=== PATIENT | female | born 1945 | race Caucasian/White ===

== ENCOUNTER 2023-05-08 16:57 | Inpatient (IN) | payer OTHER, SELFPAY ==
[2023-05-08] VITALS (29 sets, daily range): BP systolic 80–152; BP diastolic 44–119
[2023-05-08] MEDS: NSS 1000 IV ×5 (14:26→22:36)
[2023-05-08 14:27] LABS: Glucose - Point of Care 194 mg/dl (70-99)
--- NOTE | 2023-05-08 14:42 | ED.GENMED ---
History of Present Illness
General
Chief Complaint: Chest Pain
Source: patient and ambulance crew
Time Seen by Provider: 05/08/23 14:39
Travel History
Have you had any contact with someone who has COVID-19?: No
Do you have any symptoms of coronavirus? Fever > 100 degrees, chills, cough, shortness of breath, sore throat, loss of taste or smell, muscle aches, or headache?: No
History of Present Illness
History of Present Illness:
77-year-old female presents to the emergency room for evaluation of nausea, vomiting and shortness of breath. Patient began feeling unwell this morning. She was feeling at her baseline yesterday. Paramedics arrived and found the patient
hypotensive and short of breath. IV access was obtained and fluid was started. She received about 100 cc of normal saline en route. Patient also noted to have a rapid heart rate in the 140s and the lowest obtained blood pressure was a systolic of
65. Patient denies having any chest pain. Unclear why the chief complaint is entered as chest pain as the patient clearly denies this. She also denies any abdominal pain. Her nausea has decreased at this point. She has not had any diarrhea.
She denies any sick contacts.
Phy Exam
Physical Exam
Physical Exam:
General: Awake, Alert, Oriented X3. Appears uncomfortable
Vitals: Tachycardic, mildly hypotensive, hypoxic at 85% though we have been having difficulty to obtain a good pleth on the pulse oximeter
Head: Atraumatic
Eyes: Pupils equal, EOMI
Throat: Airway intact, no exudates, markedly dry
Neck: Trachea midline
Lungs: Clear and equal b/l
Heart: Tachycardic, irregular rate, no murmurs
Abd: Soft, Nontender, No pulsatile mass
Neuro: Nonfocal
Skin: Warm, dry, no rash
Extremities: pulses equal b/l, no edema
Scores
Heart Score for Chest Pain Patients
STEMI patient?: Not applicable (Patient does not have chest pain)
Course
Orders/Labs/Results
Orders:
Orders
05/08/23
Electrocardiogram (*1) Stat
Comment: ALREADY DONE
05/08/23 14:16
Electrocardiogram (*1) Urgent
Reason for Study: Chest Pain
Cardiac Monitoring- Treatment ONCE
EKG- Treatment ONCE
IV Insert/Care/Rem.- Treatment PRN
O2 Therapy [RESP] Urgent
Titrate/Wean O2 to maintain O2 sat greater than (%): 90
Special Instructions: Maintain sats >/=90%
Pulse Ox/spot Check [RESP] Urgent
Quantity: 1
Special Instructions: ON ROOM AIR
05/08/23 14:23
Diltiazem HCl [Cardizem] 25 mg .ROUTE .STK-MED ONE
05/08/23 14:25
0.9% Sodium Chloride 1000 ml [Nss] 1,000 ml IV BOLUS
05/08/23 14:40
Complete Blood Count/With Diff Urgent
Comprehensive Metabolic Panel Urgent
NT-proBNP Urgent
Comment: ADD
PTT Urgent
Comment: ADD ON
Prothrombin Time Urgent
Troponin I Urgent
05/08/23 14:41
Add On- LAB Urgent
Tests Added?: bnp
CR Chest Portable - 1 View Urgent
Comment:
Reason For Exam: hypoxia
Reason Study Needs to be Portable: Patient Unstable
05/08/23 Dinner
Regular
At Your Request: Full Participation
05/08/23 15:08
COVID-19 Antigen Urgent
Source: Nasal Swab
Influenza A+B Rapid Molecular Urgent
ANURADHA Source: Nasal Swab
Specimen Description:
05/08/23 15:27
0.9% Sodium Chloride 1000 ml [Nss] 1,000 ml IV BOLUS
05/08/23 15:48
Piperacillin/Tazo 4.5 Gram [Zosyn] 4.5 gram in 100 ml IV NOW
05/08/23 15:49
Electrocardiogram (*1) Urgent
Reason for Study: Abnormal EKG
05/08/23 16:05
Ondansetron Injectable [Zofran] 4 mg IV NOW STA
05/08/23 16:17
0.9% Sodium Chloride 1000 ml [Nss] 1,000 ml IV NOW
05/08/23 16:34
Admit/Transfer Patient As Directed
Co-Sign Provider:
Level of Care: Inpatient admission
Assign to:: ICU
Physician / Group: charles
Diagnosis: sepsis pneumonia
Reason for Hospitalization: sepsis pneumonia
Expected length of stay greater than two midnights?: Yes
ELOS- Estimated Length of Stay in days: 2
I certify the patient meets the requirements for IP care: Yes
05/08/23 16:37
Code Status As Directed
Resuscitation Status: Full Code
05/08/23 16:45
Heparin 13435 Units/250 ml 25,000 units in 250 ml IV PER PROTOCOL
Weight to be used for heparin protocol in kilograms (kg):: 83.5
Protocol:: Cardiac Tx/Acute Coronary
PTT Goal Range to be used:: PTT 73 to 111 seconds
Order type:: Initial
INITIAL Infusion Dose (UNITS/KG/hr) & then follow protocol:: 12 units/kg/hr
Infusion Dose in UNITS/hr & then follow protocol (UNITS/hr):: 1,000
INFUSION RATE in mL/hr & then follow protocol (mL/hr):: 10
PTT less than or equal to 64 seconds:: Increase rate by 200 units/hr (+ 2 mL/hr)
PTT 64.1 to 72.9 seconds:: Increase rate by 100 units/hr (+ 1 mL/hr)
PTT 73 to 111 seconds:: Target Range. No change in rate.
PTT 111.1 to 130.9 seconds:: Decrease rate by 100 units/hr (- 1 mL/hr)
PTT 131 to 199.9 seconds:: HOLD for 1 hr. Then decrease rate by 200 units/hr (- 2 mL/hr)
PTT greater than or equal to 200 seconds:: HOLD for 2 hrs & Notify Provider. Then decrease by 200 units/hr (-
2 mL/hr)
Lab follow-up:: Each change, PTT q6h until 2 consecutive are therapeutic. Then PTT
daily.
05/08/23 16:46
Blood Culture Q30M
ANURADHA Source: Blood/Venous
Specimen Description:
05/08/23 16:47
Abdomen/Pelvis w Contrast CT [CT Abd/pelvis W Iv Cont] Urgent
Comment:
Reason For Exam: abdominal pain, vomiting
Blood Culture Q30M
ANURADHA Source: Blood/Venous
Specimen Description:
05/08/23 16:53
Ondansetron Injectable [Zofran] 4 mg IV Q6HPRN PRN
05/08/23 17:00
Azithromycin 500 mg/250 ml [Zithromax Infusion] 500 mg in 250 ml IV Q24H
05/08/23 18:00
VANCOMYCIN Pharmacy to Dose [VANCOCIN Pharmacy to Dose] 1 each Pharmacy To Prepare [Call Pharmacy To Prepare] 0 ml IV PER PROTOCOL
05/08/23 20:12
Urine Osmolality Random [Osmolality, Random Urine] Urgent
Date Specimen was Collected: 05/08/23
Time Specimen was Collected: 20:09
Urine Sodium Urgent
Date Specimen was Collected: 05/08/23
Time Specimen was Collected: 20:09
Legionella Urinary Antigen Urgent
ANURADHA Source: Urine
Specimen Description:
Strep pneumoniae Antigen Urgent
ANURADHA Source: Urine
Specimen Description:
05/08/23 21:51
Troponin I Q6H
0.9% Sodium Chloride 1000 ml [Nss] 1,000 ml IV 100 mls/hr
Acetaminophen [Tylenol] 650 mg PO Q4HPRN PRN
Albuterol [ProAIR HFA INHALER] 2 puff INH R Q6 PRN
Heparin 5,000 units SC Q12
05/08/23 21:51
CARDIOLOGY CONSULT Routine
Consulting Provider: Sue Matthews
Was physician already notified: Yes
Activity As Directed
Activity Level: As Tolerated
Vital Signs As Directed
Frequency: Per unit guidelines
DX Deep Vein Thrombosis Video Routine
05/08/23 22:00
Cetirizine HCl [Zyrtec] 10 mg PO HS
Piperacillin/Tazo 3.375 Gram [Zosyn] 3.375 gram in 50 ml IV Q6H
05/09/23 01:55
Complete Blood Count/With Diff IN AM
Comprehensive Metabolic Panel IN AM
05/09/23 03:51
Troponin I Q6H
05/09/23 08:00
Multivitamin [Theragran] 1 tablet PO DAILY
Pantoprazole [Protonix] 40 mg PO DAILY
05/09/23 15:51
Troponin I Q6H
Abnormal Lab Results
05/08/23 05/08/23
14:25 14:40
WBC 16.1 H 10^3/uL
(4.8-10.8)
MCH 31.8 H pg
(27.0-31.0)
Abs Immat Gran (auto) 0.2 H 10^3/uL
(0-0.05)
Absolute Neuts (auto) 12.4 H 10^3/uL
(1.4-6.5)
Absolute Monos (auto) 1.2 H 10^3/uL
(0.1-0.6)
Immature Gran % 1.0 H %
(0-0.5)
Neutrophils % 77.0 H %
(42.2-75.2)
Lymphocytes % 14.1 L %
(20.5-51.1)
Sodium 123 L mmol/L
(135-145)
Chloride 87 L mmol/L
(98-107)
BUN 21 H mg/dl
(7-17)
Glucose 219 H mg/dl
(70-99)
AST 104 H U/L
(14-36)
ALT 58 H U/L
(0-35)
Alkaline Phosphatase 131 H U/L
(38-126)
Troponin I 0.984 H* ng/ml
POC Glucose 194 H mg/dl
(70-99)
05/08/23 16:45
05/08/23 14:40
Vital Signs
Initial and Last Documented VS:
Initial Vital Signs
Pulse Resp BP
136 37 92/82
05/08/23 14:20 05/08/23 14:20 05/08/23 14:20
Last Documented Vital Signs
Temp Pulse Resp BP Pulse Ox
99.6 F 120 34 108/86 96
05/09/23 11:00 05/09/23 11:55 05/09/23 11:55 05/09/23 11:55 05/09/23 12:35
MDM/Problems Addressed
Differential Diagnosis Includes:
dehydration, new onset a fib, gastritis, pancreatitis
MDM/Problems Addressed:
Pt arrived with nausea, vomiting, and shortness of breath. She was tahcycardic and appeared very dry on exam. Fluid resuscitation initiated with 2L normal saline. Paramedics had called ahead with concern for STEMI changes on ekg. before patient
arrived reviewed prehospital EKG and blood the patient up in [facility]. There is no previous EKG but there is an echo report which clearly states the patient has a left bundle branch block at baseline. EKG in the prehospital setting and initial EKG
obtained here in the emergency room showed an irregular rapid rate with a left bundle branch block pattern. There is ST elevation in the anterior leads but it does not exceed 25% of the preceding S wave. There was no concordance. Therefore the
patient does not have changes consistent with a ST elevation [place]. Troponin returned elevated and I did review the EKG with cardiology who agreed that these changes do not reflect an acute ST elevation [place]. Patient was hypothermic on arrival. Given
this broad-spectrum antibiotics were provided for potential sepsis particularly possibility of aspiration pneumonia. Patient's MAP did remain above 65 though her systolic pressures were in the 90s. Therefore further fluid resuscitation was pursued
rather than pressors. Patient was discussed with the hospitalist for admission.
Chronic conditions affecting care: HTN and Other (Cardiomyopathy)
*Radiology
Radiology exam reviewed: radiology read reviewed
*Pulse Oximetry
Patient hypoxic: yes
*EKG
Interpretation: abnormal
Heart Rate: 139
Rate: tachycardiac
Rhythm: a-fib
QRS Pattern: left bundle branch block
Ischemia: non-specific ST changes
*Machine Assistant Interpretation
Rate: tachycardiac
Interpretation: abnormal
Rhythm: a-fib
*Critical Care Note
Total Time (30-74mins, 75-104mins- exclusive of procedures): 40 min
comment:
Critical care statement: A total of 40 minutes of critical care time was provided for this patient. This includes management of unstable vital signs, evaluation of the patient at bedside, reviewing the patient's pertinent medical records, discussion
with consultants, review of old EKGs and review of pertinent medical records. This time with separate from time utilized to perform the aforementioned documented procedures
Patient Management
Discussion with other providers: Hospitalist
ED Attending Note
-
Portions of this chart may have been created with voice recognition software.� Occasional wrong word or��sound alike� substitutions may have occurred due to the inherent limitations of voice recognition software.
Discharge Plan
Departure
Patient Disposition: Admit
Date of Disposition: 05/08/23
Time of Disposition: 16:04
Admit to: IMU
Presentation/result/management discussed w/ accepting MD/DO: Hospitalist
Condition: Serious
Discharge Problem:
Hypothermia, Acute hyponatremia, Dehydration, Hypoxia, Pneumonia
Interventions
Interventions:
*Risk Screen - Suicide Last Done: 05/08/23 14:35
*General Assessment Last Done: 05/08/23 14:35
*Neglect/Abuse Screening Last Done: 05/08/23 14:35
ED- Fall Risk Assessment Last Done: 05/08/23 14:35
*ED COVID-19 Vaccine History Last Done: 05/08/23 14:35
*Nursing Disposition Last Done: 05/08/23 22:11
ED- Cardiac Assessment Last Done: 05/08/23 14:29
Discharge Date and Time
Discharge Date/Time: 05/08/23 22:12
[2023-05-08 14:58] LABS: % Basophils 0.2 % (0-2); % Eosinophils 0.4 % (0-6); % Lymphocytes 14.1 % (20.5-51.1); % Monocytes 7.3 % (1.7-9.3); Absolute Eosinophils 0.1 10^3/uL (0-0.7); Absolute Immature Granulocytes 0.2 10^3/uL (0-0.05); Absolute Lymphocytes 2.3 10^3/uL (1.2-3.4); Absolute Monocytes 1.2 10^3/uL (0.1-0.6); Absolute Neutrophils 12.4 10^3/uL (1.4-6.5); Hematocrit 38.6 % (37.0-47.0); Hemoglobin 13.5 g/dL (12.0-16.0); Mean Corpuscular Hgb 31.8 pg (27.0-31.0); Mean Platelet Volume 9.4 fL (7.4-10.4); Nucleated Red Blood Cells % 0 %; Platelet Count 285 10^3/uL (130-400); Red Blood Cell Count 4.24 10^6/uL (4.20-5.40); Red Cell Dist. Width 12.8 % (11.5-14.5); White Blood Cell Count 16.1 10^3/uL (4.8-10.8)
[2023-05-08 15:07] LABS: ALT (SGPT) 58 U/L (0-35); AST (SGOT) 104 U/L (14-36); Albumin 4.7 g/dl (3.5-5.0); Alkaline Phosphatase 131 U/L (38-126); Blood Urea Nitrogen 21 mg/dl (7-17); Calcium 9.6 mg/dl (8.4-10.2); Carbon Dioxide 22 mmol/L (22-30); Chloride 87 mmol/L (98-107); Glucose 219 mg/dl (70-99); Potassium 4.4 mmol/L (3.5-5.1); Sodium 123 mmol/L (135-145); Total Bilirubin 1.1 mg/dl (0.2-1.3); Total Protein 7.2 g/dl (6.3-8.2); eGFR > 60.00
[2023-05-08 15:19] LABS: Troponin I 0.984 ng/ml
[2023-05-08 15:23] LABS: PT 14.2 Sec (11.4-14.6)
[2023-05-08 15:56] LABS: NT-proBNP 138 pg/ml
[2023-05-08 15:57] LABS: COVID-19 Antigen Negative (Negative)
[2023-05-08] MEDS: ZOFRAN 4 MG IV ×2 (16:21→17:48)
[2023-05-08] MEDS: ZOSYN 100 IV (16:35)
--- NOTE | 2023-05-08 16:45 | HPS.HSE ---
Addendum entered and electronically signed by Luca Hanna MD 05/08/23 21:30:
CT Abdomen shows evidence of infectious colitis. Patient with respiratory distress on 6L oxygen so placed on Nonrebreather with improvement in respiratory status.
Addendum entered and electronically signed by Luca Hanna MD 05/08/23 18:21:
Stopped heparin drip as per cardiology.
Addendum entered and electronically signed by Luca Hanna MD 05/08/23 16:56:
Heart rate has improved with IV fluids. Does not require rate control at this time.
Addendum entered and electronically signed by Luca Hanna MD 05/08/23 16:55:
HPI
77-year-old female past with past medical history of left bundle branch block, bronchiectasis, hypertension, GERD, presenting with nausea, vomiting and shortness of breath. She began feeling unwell since yesterday. She had nausea and a few
episodes of vomiting today and shortness of breath. Paramedics arrived and found patient to be hypotensive and short of breath. She was also found to have heart rate of 140s and the lowest systolic blood pressure 65. She denies any cough, chest
pain. Denies any diarrhea. Denies any sick contacts. Denies recent travel.
She began to have worsening abdominal pain and feeling like she has to have a bowel movement after she came to the emergency room. Denies any urinary symptoms.
Original Note:
Family Physician
-
Family Physician: INTERVIEWE UNKNOWN - PT NOT
Chief Complaint
-
vomiting
History of Present Illness
vomiting
Medical History
Past Medical History
Past Medical History: Reports Other ( left bundle branch block, bronchiectasis, hypertension, GERD)
Past Surgical History: Reports None
Social History
Tobacco: Former Smoker
Alcohol: Occasional
Drug: None
Family History
Family History: Not pertinent
Allergies / Home Medications
Allergies reflects when Allergies were last updated in [facility].
Home Medications with original date entered in [facility]
Allergy/Medication List:
Allergies
Allergy/AdvReac Type Severity Reaction Status Date / Time
WALDO Inhibitors Allergy Unknown Verified 05/08/23 16:08
iodine Allergy Hives Verified 05/08/23 16:08
Sulfa (Sulfonamide Allergy Unknown Verified 05/08/23 16:08
Antibiotics)
Home Medications
albuterol sulfate 90 mcg/actuation aerosol inhaler 2 puff inhalation R Q6 PRN sob/wheezing 05/08/23
cetirizine 10 mg tablet (Zyrtec) 10 mg PO HS 05/08/23
hydrochlorothiazide 50 mg tablet 50 mg PO DAILY 05/08/23
irbesartan 150 mg tablet 150 mg PO DAILY 05/08/23
multivitamin 1 tab PO DAILY 05/08/23
omeprazole 20 mg capsule,delayed release 20 mg PO DAILY 05/08/23
potassium chloride 20 mEq tablet,extended release(part/cryst) 20 meq PO DAILY 05/08/23
Review of Systems
-
History Source: Patient
A 12 point ROS was completed and negative except as noted: Yes
Constitutional: Reports No Symptoms
EENT: Reports No Symptoms
Cardiac: Reports No Symptoms
Abdomen/GI: Reports See HPI
: Reports No Symptoms
Musculoskeletal: Reports No Symptoms
Skin: Reports No Symptoms
Neurological: Reports No Symptoms
Endocrine: Reports No Symptoms
Hematologic/Lymphatic: Reports No Symptoms
Psych: Reports No Symptoms
Physical Exam
Vital Signs
Vital Signs
Temp Pulse Resp BP Pulse Ox
90 F L 113 34 92/61 98
05/08/23 16:44 05/08/23 15:34 05/08/23 15:34 05/08/23 15:34 05/08/23 15:34
Physical Exam
General: Well Developed, Well Nourished and No Apparent Distress
HEENT: NormoCephalic, Moist mucous membranes and Atraumatic
Respiratory: Clear
Cardiac: S1/S2 and Regular Rhythm; No Murmur or Rub
GI: Soft, Non Tender, Non Distended and Normal Bowel Sounds; No Organomegaly
Rectal: Deferred by Provider
Musculoskeletal: No Clubbing, No Cyanosis and No Edema
Skin: No Rash
Neuro: Nonfocal/grossly intact
Laboratory Results
-
05/08/23 14:40
05/08/23 14:40
Laboratory Results
PT 14.2 Sec (11.4-14.6) 05/08/23 14:40
INR 1.10 05/08/23 14:40
Total Bilirubin 1.1 mg/dl (0.2-1.3) 05/08/23 14:40
AST 104 U/L (14-36) H 05/08/23 14:40
ALT 58 U/L (0-35) H 05/08/23 14:40
Alkaline Phosphatase 131 U/L (38-126) H 05/08/23 14:40
Troponin I 0.984 ng/ml H* 05/08/23 14:40
Data Reviewed
-
Lab Data: Labs Reviewed by me
Old Records: Reviewed
Impression/Plan
-
IMPRESSION:
PLAN:
# Hypoxic respiratory failure/severe sepsis (hypothermia, tachycardia, leukocytosis, tachypnea) secondary to bilateral interstitial type pneumonia
-IV fluids
-No cough so unable to check sputum
-Check blood cultures
-Check Legionella, strep, MRSA,
-Vancomycin, zosyn, azithromycin to cover atypical pathogens/Legionella
# New onset atrial fibrillation with RVR triggered by sepsis
-[id number] 4
-Heparin drip
-Cardiology consulted
# Non-PR troponin elevation in the setting of sepsis/new onset A-fib/hypoxia
# History of left bundle branch block
-EKG shows atrial fibrillation with RVR with heart rate of 120, with left bundle branch block
-No chest pain
-Troponin 0.984
-Trend troponins
-Check echo
# Hyponatremia secondary to vomiting/exacerbated by hydrochlorothiazide
-Monitor with IV fluids
-Check urine sodium, osmolality
-Hold hydrochlorothiazide
-Evaluate for Legionella
# Abdominal pain/vomiting
-Check CT abdomen pelvis
# Transaminitis in the setting of sepsis
-Continue to monitor
History of bronchiectasis
-Continue inhalers
Essential hypertension
-Hold hydrochlorothiazide, irbesartan
GERD
-Continue omeprazole
Full code
DVT prophylaxis�heparin
Regular diet
--- NOTE | 2023-05-08 16:55 | CON.CAR ---
Addendum entered and electronically signed by Sue Matthews DO 05/09/23 23:18:
Reviewed twelve-lead EKGs with interventional cardiology
Addendum entered and electronically signed by Sue Matthews, 05/08/23 18:32:
I saw and examined the patient.
The Hearing Officer's note was reviewed and I agree with the note.
Comment: Leatha is a 77-year-old female with past medical history of nonischemic cardiomyopathy, hypertension, chronic left bundle branch block, bronchiectasis with lung nodules who presents to emergency department 05/07/2022 with complaints of
nausea, vomiting, tachycardia and hypotension.� Patient began feeling unwell yesterday but today symptoms got worse associated with nausea and vomiting which prompting her family to call 911.� When paramedics arrived they found patient hypotensive,
systolic blood pressure of 65 and short of breath.� She was noted to have elevated heart rate. On arrival to emergency department patient was noted to be hypothermic and hypoxic. Labs show elevated white count of 16.1, sodium 123, abnormal LFTs
AST/ALT 104/58.� Elevated troponin of 0.984.� proBNP was 138. Twelve-lead EKG atrial fibrillation with underlying left bundle branch block. Chest x-ray demonstrated increased reticulonodular markings within both lungs concerning for bilateral
pneumonia.� She was negative for COVID.
GEN: 77-year-old female who appears ill. AOA x 3
HEENT: mmm
LUNGS: Bronchovesicular breath sounds, coarse bilaterally
CV: tachycardic S1/S2, 1/6 syst LSB
ABD: soft, BS+, NT/ND
EXT: No edema
Plan:
Presented 05/08/2023 with nausea and vomiting, shortness of breath and hypotension
Hypoxic respiratory insufficiency with bilateral pneumonia/sepsis
-Patient started on antibiotics with vancomycin, Zosyn and erythromycin
-Flu and COVID negative
-Blood cultures pending
-IV fluid resuscitation ongoing with some improvement of BP and tachycardia.
-If BP does not improve may require pressors
-Hyponatremia also improving, monitor closely
-Hold antihypertensive agents
New atrial fibrillation with underlying left bundle branch block
-Monitor telemetry
-If recurs, start anticoagulation
Abnormal troponin, initial 0.984
-Trend to peak
-Start aspirin 81 mg daily
-Patient had normal perfusion on outpatient stress test January 2023
-Patient had EF of 45% with apical hypokinesis on outpatient echo December 2022 with ejection fraction at the time of stress test in January 2023 with a EF estimated greater than 65%.
-Repeat 2D echo
Abnormal LFT with nausea and vomiting
-CT of abdomen and pelvis ordered.�
-May be secondary to acute sepsis and hypotension
-Monitor and trend
Hypertension
-Hold irbesartan, hydrochlorothiazide given hypotension
Original Note:
Consultation
Consultation Request
Date/Time Consultation Requested: 05/08/2023
Date/Time Consultation Performed: 05/08/2023
Requesting Provider: Dr. Hanna
Performing Provider: Chelsea Cedeño PA-C for Dr. Sue Matthews
Reason for Consultation: Atrial fibrillation with rapid ventricular response
Medical History
-
History of Present Illness:
Patient is a 77-year-old female with past medical history of nonischemic cardiomyopathy, hypertension, chronic left bundle branch block, bronchiectasis with lung nodules who presents to emergency department 05/07/2022 with complaints of nausea,
vomiting, tachycardia and hypotension. Patient began feeling unwell yesterday but today symptoms got worse associated with nausea and vomiting which prompting her family to call 911. When paramedics arrived they found patient hypotensive, systolic
blood pressure of 65 and short of breath. She was noted to have elevated heart rate. On arrival to emergency department patient was noted to be hypothermic and hypoxic. Labs show elevated white count of 16.1, sodium 123, abnormal LFTs AST/ALT
104/58. Elevated troponin of 0.984. proBNP was 138. ECG showed tachycardia with heart rates in the 120-140's bpm. Chest x-ray demonstrated increased reticulonodular markings within both lungs concerning for bilateral pneumonia. She was negative
for COVID.
At time of this evaluation patient lying in bed in some distress appearing short of breath on oxygen. Heart rates have improved and patient appears to be in sinus rhythm. She denies chest pain. Still feels nauseous and has difficulty catching her
breath.
PMH:
Cardiomyopathy
Hypertension
Aortic regurgitation, mild
LBBB (left bundle branch block)
Bronchiectasis, follows with Dr. Guzman
Lung nodules
History of pneumonia
Skin cancer
History of polio no sequela
Low back pain due to degenerative disc disease and degenerative joint disease
History of Lyme's disease
Meningioma right frontal inner calvarial table
Popliteal vein aneurysm
Rheumatoid arthritis�
Scoliosis
Varicose vein stripping
Left breast lumpectomy
Total abdominal hysterectomy bilateral salpingo-oophorectomy
Sinus surgery
Past Medical History
Past Medical History: Other (See HPI)
Past Surgical History: Other (Varicose vein stripping, Left breast lumpectomy, Total abdominal hysterectomy bilateral salpingo-oophorectomy. Sinus surgery)
Social History
Tobacco: Former Smoker
Alcohol: Daily (1-2 alcoholic beverages daily)
Drug: None
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
Family History
Family History: Other (Father: coronary artery disease, mother: hypertension, valve replacement)
Allergies / Home Medications
Allergy/AdvReac Type Severity Reaction Status Date / Time
WALDO Inhibitors Allergy Unknown Verified 05/08/23 16:08
iodine Allergy Hives Verified 05/08/23 16:08
Sulfa (Sulfonamide Allergy Unknown Verified 05/08/23 16:08
Antibiotics)
Medication Instructions Recorded Confirmed Type
albuterol sulfate 90 mcg/actuation 2 puff inhalation R Q6 PRN 05/08/23 05/08/23 History
aerosol inhaler sob/wheezing
cetirizine 10 mg tablet (Zyrtec) 10 mg PO HS 05/08/23 05/08/23 History
hydrochlorothiazide 50 mg tablet 50 mg PO DAILY 05/08/23 05/08/23 History
irbesartan 150 mg tablet 150 mg PO DAILY 05/08/23 05/08/23 History
multivitamin 1 tab PO DAILY 05/08/23 05/08/23 History
omeprazole 20 mg capsule,delayed 20 mg PO DAILY 05/08/23 05/08/23 History
release
potassium chloride 20 mEq 20 meq PO DAILY 05/08/23 05/08/23 History
tablet,extended release(part/cryst)
Review of Systems
-
History Source: Patient
All other systems: Negative unless noted
Physical Exam
Vital Signs
Temp Pulse Resp BP Pulse Ox
90 F L 113 34 92/61 98
05/08/23 16:44 05/08/23 15:34 05/08/23 15:34 05/08/23 15:34 05/08/23 15:34
GEN: No distress, awake, Ox3
HEENT: supple, anicteric, mmm
LUNGS: CTA, no wheezes/rales
CV: Reg, S1/S2, 1/6 syst LSB, no murmur
ABD: soft, BS+, NT/ND
EXT: No edema
NEURO: Gross non-focal
SKIN: No rash
Lab Results
05/08/23 14:40
Troponin I 0.984 ng/ml H* 05/08/23 14:40
Adi-M-Exxtscyaeio Pept 138 pg/ml 05/08/23 14:40
Impression / Plan
-
PCP: Willy Bragg
Cleaner And Polisher: Dr. Ravinder Flores
Impression:
Presents 05/07/2022 with nausea, vomiting
hypoxic respiratory insufficiency
Concern for sepsis
Tachycardic heart rate
Hypothermia
Hyponatremia
Abnormal troponin
Concern for bilateral pneumonia
Abnormal LFTs
Cardiomyopathy
Hypertension
Aortic regurgitation, mild
LBBB (left bundle branch block)
Bronchiectasis, follows with Dr. Guzman
Lung nodules
History of pneumonia
Skin cancer
History of polio no sequela
Low back pain due to degenerative disc disease and degenerative joint disease
History of Lyme's disease
Meningioma right frontal inner calvarial table
Popliteal vein aneurysm
Rheumatoid arthritis�
Scoliosis
Varicose vein stripping
Left breast lumpectomy
Total abdominal hysterectomy bilateral salpingo-oophorectomy
Sinus surgery
Echo December 2022: EF 45% with apical hypokinesis, LVH and mild AR.
Lexiscan MIBI January 2023: normal myocardial perfusion with preserved ejection fraction
Plan:
Patient is a 77-year-old female with past medical history of nonischemic cardiomyopathy, hypertension, chronic left bundle branch block, bronchiectasis with lung nodules who presents to emergency department 05/07/2022 with complaints of nausea,
vomiting, tachycardia and hypotension. Patient began feeling unwell yesterday but today symptoms got worse associated with nausea and vomiting which prompting her family to call 911. When paramedics arrived they found patient hypotensive, systolic
blood pressure of 65 and short of breath. She was noted to have elevated heart rate. On arrival to emergency department patient was noted to be hypothermic and hypoxic. Labs show elevated white count of 16.1, sodium 123, abnormal LFTs AST/ALT
104/58. Elevated troponin of 0.984. proBNP was 138. ECG showed tachycardia with heart rates in the 120-140's bpm. Chest x-ray demonstrated increased reticulonodular markings within both lungs concerning for bilateral pneumonia. She was negative
for COVID.
At time of this evaluation patient lying in bed in some distress appearing short of breath on oxygen. Heart rates have improved and patient appears to be in sinus rhythm. She denies chest pain. Still feels nauseous and has difficulty catching her
breath.
-Presented 05/08/2023 with nausea, vomiting, tachycardia, hypothermic and SOB with hypoxia.
Hypoxic respiratory insufficiency/severe sepsis (hypothermia, tachycardia, leukocytosis, tachypnea) secondary to bilateral interstitial type pneumonia
-Patient started on antibiotics with vancomycin, Zosyn and erythromycin
-Flu and COVID negative
-Blood cultures pending
-IV fluid resuscitation ongoing with some improvement of BP and tachycardia.
-If BP does not improve may require pressors
-Hyponatremia also improving, monitor closely
-Hold antihypertensive agents
Tachycardic heart rate
-Concern for possible atrial fibrillation with rapid ventricular response secondary to sepsis although EKG difficult to interpret given underlying left bundle branch block. Now that heart rates are improving you can see patient is in sinus rhythm
with P waves noted on tele
-Would hold on starting IV heparin
-Hopeful that heart rates with improve with IV fluid resuscitation and treatment of underlying pneumonia
Abnormal troponin, initial 0.984
-Suspect nonischemic myocardial injury secondary to sepsis, tachycardia, hypothermia
-Trend to peak
-Patient had normal perfusion on outpatient stress test January 2023
-Consider rechecking echocardiogram. Patient had EF of 45% with apical hypokinesis on outpatient echo December 2022
Abnormal LFT with nausea and vomiting
-CT of abdomen and pelvis ordered.
-May be secondary to acute sepsis and hypotension
-Monitor and trend
Hypertension
-Hold irbesartan, hydrochlorothiazide given hypotension
Discussed with Dr. Arceo, nursing and patients family/ at bedside
Data Reviewed
-
EKG: Report Reviewed by me, Discussed with Physician, Discussed with Nurse, Discussed with Patient and Discussed with Family
Radiology: Report Reviewed by me, Discussed with Physician, Discussed with Nurse, Discussed with Patient and Discussed with Family
Labs: Labs Reviewed by me, Discussed with Physician, Discussed with Nurse, Discussed with Patient and Discussed with Family
Old Records: Reviewed
[2023-05-08] MEDS: HEPARIN 25000 UNITS/250 ML IV (17:30)
[2023-05-08 17:32] LABS: APTT 28.8 Sec (23.4-35.0)
[2023-05-08 17:39] LABS: Lactic Acid 4.3 mmol/L (0.7-2.0)
[2023-05-08] MEDS: VANCOCIN 540 MG IV (17:42)
[2023-05-08] MEDS: ZITHROMAX INFUSION 250 IV (18:09)
[2023-05-08] MEDS: BENADRYL 50 MG IV (18:59)
[2023-05-08] MEDS: SOLU-CORTEF 200 MG IV (18:59)
--- NOTE | 2023-05-08 19:34 | PHA.VAN.IN ---
Assessment
- Assessment
Renal Function: Unknown baseline
Minimum Temperature: 90 F oral 05/07 @ 1644
Concomitant Antimicrobials: azithromycin, piperacillin/tazobactam
Plan
- Plan
Initial / Loading Dose: vanc 2000mg administered @ 1742
Maintenance Regimen: dosing by level
Monitoring: random level 05/08 0600
Pharmacokinetics Vancomycin I
- -
Patient Age: 77
Patient Sex: Female
Vancomycin Day #: 1
Indication: Pulmonary/Respiratory
Requesting Provider: Dr. Hanna
Pertinent Antimicrobial Allergies:
sulfa - unknown
Height / Weight:
Height 5 ft 4 in
Actual Weight 83.5 kg
Pertinent Past Medical History: BMI ~32
- Vital Signs / Lab Results
Temp Pulse Resp BP Pulse Ox
97.2 F 119 45 106/84 78
05/08/23 17:12 05/08/23 17:50 05/08/23 17:50 05/08/23 17:50 05/08/23 17:20
Lab Results - Hematology
05/08/23 05/08/23
14:40 16:45
WBC 16.1 H Cancelled
Lab Results - Chemistry
05/08/23
14:40
BUN 21 H
Creatinine 0.7
Albumin 4.7
05/08/23
17:19
Lactic Acid 4.3 H*
Microbiology Results
05/08/23 15:08 Influenza Types A & B ([facility]ANCO) - Final
Nasal Swab Negative for Influenza A & B, NAAT
Negative results must be combined with clinical observations
and patient history.
Nucleic Acid Amplification test (NAAT)performed on the
[employer] platform.
[2023-05-08 21:43] LABS: Lactic Acid 4.2 mmol/L (0.7-2.0)
--- NOTE | 2023-05-08 22:00 | PTCARENOTE ---
pt adm to ICU from ER, lethargic, oriented x 3, arrived on NRB 15L - Sat 100%, B/L IV flsuhed/patent- NSS infusing at 100cc/hr, ST HR 120s, skin cool/intact, Rectal probe placed- T 97.5F, purewick in place, pt denies pain and nausea, CHG clothes,
POC discussed call fay in reach. at bedside.
[2023-05-08 22:25] LABS: B.E. -8.1 mmol/L; HCO3 17.8 mmol/L (21-28); PCO2 37 mmHg (32-35); PO2 150 mmHg (83-108); pH 7.29 (7.35-7.45)
[2023-05-08] MEDS: HEPARIN 5000 UNITS SC (22:35)
[2023-05-08] MEDS: ZOSYN 50 IV (22:36)
[2023-05-08] MEDS: ZYRTEC 10 MG PO (22:36)
[2023-05-08 23:06] LABS: APTT 24.3 Sec (23.4-35.0)
[2023-05-08 23:11] LABS: Lactic Acid 5.4 mmol/L (0.7-2.0)
[2023-05-09] VITALS (85 sets, daily range): BP systolic 64–145; BP diastolic 45–115; BMI 31.5
[2023-05-09 00:22] LABS: Osmolality Urine 364 mOsm/kg (300-900)
[2023-05-09 00:33] LABS: Urine Sodium 30 mmol/L (30-90)
--- NOTE | 2023-05-09 00:38 | PTCARENOTE ---
RT tried pt on 6LNC, pt sat down to low 80s, mouth breathing, back on 15L NRB, Sat gradually back to 93%. no further changes.
[2023-05-09 02:04] LABS: % Basophils 0.2 % (0-2); % Eosinophils 0.5 % (0-6); % Immature Granulocytes 0.8 % (0-0.5); % Lymphocytes 3.8 % (20.5-51.1); % Monocytes 6.6 % (1.7-9.3); % Neutrophils 88.1 % (42.2-75.2); Absolute Basophils 0.1 10^3/uL (0-0.2); Absolute Eosinophils 0.1 10^3/uL (0-0.7); Absolute Immature Granulocytes 0.2 10^3/uL (0-0.05); Absolute Lymphocytes 0.9 10^3/uL (1.2-3.4); Absolute Monocytes 1.5 10^3/uL (0.1-0.6); Absolute Neutrophils 20.3 10^3/uL (1.4-6.5); Hematocrit 37.8 % (37.0-47.0); Hemoglobin 13.1 g/dL (12.0-16.0); Mean Corp Hgb Conc. 34.7 g/dL (33.0-37.0); Mean Corpuscular Hgb 31.5 pg (27.0-31.0); Mean Corpuscular Volume 90.9 fL (81.0-99.0); Mean Platelet Volume 9.3 fL (7.4-10.4); Nucleated Red Blood Cells % 0 %; Platelet Count 219 10^3/uL (130-400); Red Blood Cell Count 4.16 10^6/uL (4.20-5.40); Red Cell Dist. Width 13.2 % (11.5-14.5); White Blood Cell Count 23.1 10^3/uL (4.8-10.8)
--- NOTE | 2023-05-09 02:56 | PTCARENOTE ---
pt restless, multiple attempts at BM on bedpan- only small smear since arrival, purewick in place but pt unable to void, bladder scan for 626, BDoughertyNP aware, Martinez cath placed- 600cc dark meek urine out. bed alarm on.
[2023-05-09 03:02] LABS: ALT (SGPT) 108 U/L (0-35); AST (SGOT) 128 U/L (14-36); Albumin 3.6 g/dl (3.5-5.0); Alkaline Phosphatase 115 U/L (38-126); Blood Urea Nitrogen 22 mg/dl (7-17); Calcium 9.5 mg/dl (8.4-10.2); Carbon Dioxide 20 mmol/L (22-30); Chloride 97 mmol/L (98-107); Estimated Creatinine Clearance 85 ml/min; Glucose 190 mg/dl (70-99); Lactic Acid 5.4 mmol/L (0.7-2.0); Potassium 4.6 mmol/L (3.5-5.1); Sodium 132 mmol/L (135-145); Total Protein 6.1 g/dl (6.3-8.2); eGFR > 60.00
[2023-05-09] MEDS: ZOSYN 50 IV (04:51)
[2023-05-09 05:54] LABS: B.E. -10.6 mmol/L; O2 Saturation % 99.9 % (94-98); PCO2 32 mmHg (32-35); PO2 145 mmHg (83-108); pH 7.28 (7.35-7.45)
--- NOTE | 2023-05-09 05:57 | PTCARENOTE ---
pt increased WOB, pulse ox reading low intermittently, RR 40s, abd muscle use noted, pt oriented/easily arousable- increased anxiety/restless. BdoughertyNP aware, RT to bedside to draw abg . CXR ordered.
[2023-05-09] MEDS: SODIUM BICARBONATE 50 MEQ IV (06:29)
--- NOTE | 2023-05-09 07:30 | PTCARENOTE ---
Increase WOB noted...pt responds to verbal stimuli but appears drowsy and restless. 's katieer texted. Rec'd on 100% NRB...sats 100% when good pleth obtained. S1 S2 reg w/ ST/1st degree AVB/BBC on monitor. Weak PP. No edema. Skin cool to
touch. Lungs clear anteriorly...poor effort...challenging to auscultate posteriorly...extremely diminished. Abdomen obese...hypo BS. Tender to palpation. Martinez draining meek/tea colored urine. Sacrum intact. Heels elevated on pillows. 18P
RAC w/ IVF's infusing. 20P LW capped. VS documented. Will continue to monitor closely.
--- NOTE | 2023-05-09 07:55 | CON.GI ---
Addendum entered and electronically signed by Bennie Rodriguez MD 05/09/23 10:56:
I saw and examined the patient.
The INSIDE METER TESTER or PA's note was reviewed and I agree with the note.
Comment:
Pt with constipation then abdominal pain at home. Admitted with vomiting. CT scan showed left sided colitis (transverse to sigmoid). Pt denies diarrhea but very tachpneic in the bed. No GI hx. Did have outpatient colonoscopy in past. Lactate
rising
abd: soft, nontender, decreased bms
significant respiratory distress
impression:
colitis more likely ischemic in light of severe presentation with no diarrhea
abd pain
tachypnea
abnl lfts
plan:
NPO
broad spectrum antibiotics
most urgent issue is respiratory status and possible need for intubation
Surgery for evaluation of ischemic gut
follow lfts, WBC
hgb stable
stool studies if diarrhea
Addendum entered and electronically signed by Sakshi Allison NP 05/09/23 09:04:
Also with Elevated troponins/concern for active TN- cardiology is at the bedside. STAT Echo is ordered.
Original Note:
Consultation
-
Date/Time Consultation Requested: 05/09/2023 @ 04:44
Date/Time Consultation Performed: 05/09/23 @ 08:00
Requesting Provider: TIN Flores
Performing Provider: TIN Gross; Dr. Rodriguez
Reason for Consultation: Colitis
Medical History
Chief Complaint / HPI
Chief Complaint: vomiting
History of Present Illness:
The patient is a 77-year-old female with a past medical history significant for hypertension, GERD, bronchiectasis, chronic left bundle branch block, nonischemic cardiomyopathy, hyperlipidemia, osteoarthritis, who presented to the emergency room
with complaints of vomiting. We are being asked to evaluate for colitis. The patient is awake and arousable but history is limited due to respiratory status. She notes that yesterday she was not feeling well, and developed nausea and vomiting.
She does not note any significant abdominal pain prior to coming in but was experiencing some yesterday after arrival and this morning. She denies any diarrhea but does note she has been having some constipation prior to coming in which somewhat
chronic for her. She denies any fevers or chills. She denies any melena, hematochezia, or hematemesis. She has had no further nausea since admission. She is short of breath. No reported chest pain. Notable for small smear of bowel movement
overnight that was brown in color. She denies any recent antibiotics or recent travel. She denies any prior history of colitis. She takes a baby aspirin but no other use of blood thinners. She reports having a colonoscopy in the past in [place]
in which she had polyps with no reports of any colitis or IBD. Routine labs on admission showed a WBC count 16.1, hemoglobin 13.5, platelets 285,000, INR 1.10, sodium 123, potassium 4.4, BUN 21, creatinine 0.7, glucose 219, lactic acid 4.3, total
bilirubin 1.1, AST 104, ALT 558, alk phos 131, troponin elevated 0.94, proBNP 138, COVID-negative. Gentleman ABGs which showed metabolic acidosis. She underwent CT imaging of the abdomen and pelvis which showed mild hazy groundglass opacities
within both lower lungs, colitis extending from the sigmoid colon to the transverse colon, and a large amount of stool distending the rectum with mild perirectal edema suggesting mild stercoral colitis. She was placed on IV Zosyn. Also with
notable hypoxia placed on nonrebreather with improvement in her saturations. Chest x-ray showed right basilar opacity suggesting pneumonia versus atelectasis. Currently critically ill in the ICU. She has been more lethargic this morning per
nursing but arousable. She denies any further nausea or vomiting. She is borderline hypotensive and tachycardic as well.
Past Medical History
Past Medical History: GERD, HTN, Hypercholesterolemia and Other (Nonischemic cardiomyopathy, chronic left bundle branch block, bronchiectasis, osteoarthritis)
Past Surgical History: None (none reported (limited history due to respiratory state))
Social History
Tobacco: Non-Smoker
Alcohol: Occasional
Drug: None
Family History
Family History: Reviewed & Not Pertinent
Allergies / Home Medications
Allergy/AdvReac Type Severity Reaction Status Date / Time
WALDO Inhibitors Allergy Unknown Verified 05/08/23 16:08
iodine Allergy Hives Verified 05/08/23 16:08
Sulfa (Sulfonamide Allergy Unknown Verified 05/08/23 16:08
Antibiotics)
Medication Instructions Recorded
albuterol sulfate 90 mcg/actuation 2 puff inhalation R Q6 PRN 05/08/23
aerosol inhaler sob/wheezing
cetirizine 10 mg tablet (Zyrtec) 10 mg PO HS 05/08/23
hydrochlorothiazide 50 mg tablet 50 mg PO DAILY 05/08/23
irbesartan 150 mg tablet 150 mg PO DAILY 05/08/23
multivitamin 1 tab PO DAILY 05/08/23
omeprazole 20 mg capsule,delayed 20 mg PO DAILY 05/08/23
release
potassium chloride 20 mEq 20 meq PO DAILY 05/08/23
tablet,extended release(part/cryst)
Review of Systems
-
History Source: Patient
Constitutional: Reports No Symptoms
EENT: Reports No Symptoms
Respiratory: Reports Trouble Breathing
Abdomen/GI: Reports Abdominal Pain, Nausea, Vomiting and Constipated
: Reports No Symptoms
Musculoskeletal: Reports No Symptoms
Skin: Reports No Symptoms
Vital Signs
Temp Pulse Resp BP Pulse Ox
98.8 F 104 42 130/115 88
05/09/23 07:40 05/09/23 05:45 05/09/23 05:45 05/09/23 05:04 05/09/23 05:45
Physical Exam
Exam
General: Respiratory Distress and Other (Critically ill appearing, pale elderly female)
HEENT: Normocephalic, Anicteric and Atraumatic
Respiratory: Other (diminished breath sounds bilaterally but no significant wheezing, + tachypnea)
Cardiac: S1/S2, Regular Rhythm and Other (tachycardia on tele monitor)
Breast: Deferred by me
GI: Soft, Tender (generalized), Distended (mildly distended but soft) and Other (hypoactive bowel sounds)
Rectal: Deferred by Provider (due to respiratory status)
Musculoskeletal: No Edema
Skin: Warm and Dry
Neuro: Other (drowsy but arousable)
Psych: Calm
Results
WBC 23.1 10^3/uL (4.8-10.8) H 05/09/23 01:55
Hgb 13.1 g/dL (12.0-16.0) 05/09/23 01:55
Hct 37.8 % (37.0-47.0) 05/09/23 01:55
MCV 90.9 fL (81.0-99.0) 05/09/23 01:55
Plt Count 219 10^3/uL (130-400) D 05/09/23 01:55
Absolute Neuts (auto) 20.3 10^3/uL (1.4-6.5) H 05/09/23 01:55
PT 14.2 Sec (11.4-14.6) 05/08/23 14:40
INR 1.10 05/08/23 14:40
APTT 24.3 Sec (23.4-35.0) 05/08/23 22:18
Sodium 132 mmol/L (135-145) L D 05/09/23 01:55
Potassium 4.6 mmol/L (3.5-5.1) 05/09/23 01:55
Chloride 97 mmol/L (98-107) L 05/09/23 01:55
Carbon Dioxide 20 mmol/L (22-30) L 05/09/23 01:55
BUN 22 mg/dl (7-17) H 05/09/23 01:55
Creatinine 0.6 mg/dL (0.6-1.0) 05/09/23 01:55
Calcium 9.5 mg/dl (8.4-10.2) 05/09/23 01:55
Total Bilirubin 2.0 mg/dl (0.2-1.3) H 05/09/23 01:55
AST 128 U/L (14-36) H 05/09/23 01:55
ALT 108 U/L (0-35) H 05/09/23 01:55
Alkaline Phosphatase 115 U/L (38-126) 05/09/23 01:55
Diagnostic Image Results:
05/09/2023 CXR: Increased right basilar opacity suggesting pneumonia versus atelectasis.
05/08/2023 CT A/P: IMPRESSION: 'Trace amount of pleural fluid in the right lower chest. Mild hazy groundglass opacity within both lower lungs, which could represent atelectasis and/or mild groundglass pneumonitis. Linear densities within the right
lower lobe and right middle lobe, which is likely dependent atelectasis. Long segment of wall thickening extending from the sigmoid colon through the splenic flexure and into the left side of the transverse colon. This finding would be compatible
with colitis. Infectious colitis would be the leading consideration. Main differential considerations of ischemic colitis and inflammatory bowel disease. No evidence of free intraperitoneal air. Periportal edema is present. There is a small amount
of free fluid around the liver and spleen in both upper quadrants and also within the pelvis. Enlarged right atrium and right ventricle with reflux of contrast to the IVC within the liver, suggesting elevated right heart pressure. Not mentioned
above, mild subcutaneous edema diffusely. Large amount of stool distending the rectum, with mild perirectal edema, suggesting mild stercoral colitis.'
Prior GI Procedures:
EGD: none reported
Colonoscopy: prior scope in [place] with hx of polyps per pt
Assessment / Plan
-
The patient is a 77-year-old female with a past medical history significant for hypertension, GERD, bronchiectasis, chronic left bundle branch block, nonischemic cardiomyopathy, hyperlipidemia, osteoarthritis, who presented to the emergency room
with complaints of vomiting. We are being asked to evaluate for colitis. She notes acute onset of nausea and vomiting with subsequent abdominal pain. Hypotensive and tachycardic on admission, admitted to the ICU for severe sepsis now with worsening
acidosis. Concerning for ischemic process. Started on IV abx with Zosyn, Vancomycin, and Azithromycin. +respiratory distress. Hypotensive not on pressors. +Lactic acidosis. No diarrhea or signs of bleeding without further vomiting.
Problem list:
-nausea, vomiting
-abdominal pain
-Severe sepsis 2/2 GI source v pneumonia
-lactic acidosis
-metabolic acidosis
-hyponatremia
-CT imaging showing colitis at SC, SF, TC/stercoral colitis (other findings as noted above)
-hypoxic respiratory failure requiring NRB
Other pertinent medical hx:
-GERD
-HTN
-bronchiectasis
-chronic LBBB
-non-ischemic cardiomyopathy
-HLD
-OA
Recommendations:
-Etiology of current symptoms concerning for possible ischemic bowel v infectious colitis versus unlikely inflammatory bowel disease versus other.
---CT imaging with colitis at the sigmoid colon to the splenic flexure into the left transverse colon suggest to be infectious versus ischemic process although with only moderate atherosclerotic disease and relatively patent SMA and MARGARITO.
-At this time would make NPO with current respiratory state and severe sepsis possibly requiring intubation
-Agree with surgery consult
-She is not having any signs of bleeding currently therefore no urgent endoscopic evaluation warranted
-IV antibiotics started with Zosyn, azithromycin, and Vancomycin as per hospitalist
-Cardiology and critical care are following
-If any diarrhea would send stool studies
-Will not attempt rectal exam/enema with her current respiratory status and critical state.
-Monitor hemodynamics closely and ensure adequate perfusion
-Further care and management per critical care team
-We will follow
-
-
Thank you for consultation and allowing me to participate in the patient's care. Please call the administrative operations coordinator GI physician during the after hours with any questions or concerns.
[2023-05-09] MEDS: NSS 1000 IV (07:57)
[2023-05-09] MEDS: HEPARIN SC (07:57)
--- NOTE | 2023-05-09 08:18 | CON.INTV ---
Consultation
Consultation Request
Date/Time Consultation Requested: 05/08/2023 - 2151
Date/Time Consultation Performed: 05/09/2023 - 809
Requesting Provider: Dr. Hanna
Performing Provider: Dr. Dudley
Reason for Consultation: Septic shock/Respiratory distress
Medical History
-
Chief Complaint: Nausea, vomiting, shortness of breath
History of Present Illness:
77-year-old female with a past medical history of NICM, bronchiectasis, history of pneumonia, history of skin cancer, rheumatoid arthritis and history of Lyme disease who presents with shortness of breath, vomiting and hypotension. When EMS arrived
patient was hypotensive with SBP 65. Also concern for ST elevation. Patient hypothermic to 90 �F in the ER, tachycardic to 107, tachypneic to 30 breaths/min, and hypotensive to 85/55mmHg. Patient required 6 L/min nasal cannula with SpO2 95%. She
appeared disheveled with dry mucous membranes. Initial sodium 123, glucose 219, troponin 0.94, WBC 16, COVID-19 negative. CXR showed increased reticulonodular markings (L >R) suspicious for pneumonia. CT A/P showed wall thickening from the
sigmoid colon through the splenic flexure into the left side of the transverse colon compatible with colitis. She was given IV fluids with NS 0.9%, in addition to Zosyn. A total of 4 L of IV fluids were given however she remained labile with her
blood pressure. Patient transferred to the ICU for closer monitoring and critical care services consulted for additional management/recommendations.
Shortly after this morning (05/09/2023), patient was intubated by anesthesia and then suffered a cardiac arrest. ROSC obtained after epi 1 mg x 2 and 2 amps of bicarb were given (see my separate code documentation note for details). After ROSC,
patient was vomiting, and trying to reach for tube. Vomitus appeared bilious. Family came to bedside shortly thereafter, they were updated. Patient to remain full code for now with full medical treatment.
PMHx: NICM, hypertension, LBBB, bronchiectasis, lung nodules, chronic lower back pain, history of Lyme disease, history of right frontal meningioma, history of RA, aortic regurgitation
PSHx: Varicose vein stripping, Left breast lumpectomy, Total abdominal hysterectomy bilateral salpingo-oophorectomy. Sinus surgery
Past Medical History
Past Medical History: Other (Above as per HPI)
Past Surgical History: Other (Above as per HPI)
Social History
Tobacco: Former Smoker
Alcohol: Occasional
Drug: None
Family History
Family History: Reviewed & Not Pertinent
Allergies / Home Medications
Allergies
Allergy/AdvReac Type Severity Reaction Status Date / Time
WALDO Inhibitors Allergy Unknown Verified 05/08/23 16:08
iodine Allergy Hives Verified 05/08/23 16:08
Sulfa (Sulfonamide Allergy Unknown Verified 05/08/23 16:08
Antibiotics)
Home Medications
Medication Instructions Recorded Confirmed Last Taken Type
albuterol sulfate 90 mcg/actuation 2 puff inhalation R Q6 PRN 05/08/23 05/08/23 Unknown History
aerosol inhaler sob/wheezing
cetirizine 10 mg tablet (Zyrtec) 10 mg PO HS 05/08/23 05/08/23 05/07/23 History
hydrochlorothiazide 50 mg tablet 50 mg PO DAILY 05/08/23 05/08/23 05/08/23 History
irbesartan 150 mg tablet 150 mg PO DAILY 05/08/23 05/08/23 05/08/23 History
multivitamin 1 tab PO DAILY 05/08/23 05/08/23 Unknown History
omeprazole 20 mg capsule,delayed 20 mg PO DAILY 05/08/23 05/08/23 05/08/23 History
release
potassium chloride 20 mEq 20 meq PO DAILY 05/08/23 05/08/23 05/08/23 History
tablet,extended release(part/cryst)
Review of Systems
-
Unable to Obtain full review of systems at this time due to: Acuity
Vitals / Labs / Diagnostic Testing
Vital Signs
Temp Pulse Resp BP Pulse Ox
98.8 F 97 40 115/92 99
05/09/23 07:40 05/09/23 09:00 05/09/23 09:00 05/09/23 09:00 05/09/23 09:10
Lab Data
05/09/23 09:45
05/09/23 09:45
Laboratory Results
05/08/23 05/08/23 05/08/23
14:40 16:45 22:16
PT 14.2
INR 1.10
APTT 28.8 Cancelled
pH 7.29 L
pCO2 37 H
pO2 150 H
HCO3 17.8 L
O2 Delivery Level
05/08/23 05/09/23 05/09/23
22:18 05:40 08:53
PT
INR
APTT 24.3 28.2
pH 7.28 L
pCO2 32
pO2 145 H
HCO3 15.0 L*
O2 Delivery Level
05/09/23
09:45
PT 17.8 H
INR 1.48
APTT 32.2
pH Cancelled
pCO2 Cancelled
pO2 Cancelled
HCO3 Cancelled
O2 Delivery Level Cancelled
Microbiology
05/08/23 20:12 Urine Legionella Urinary Antigen - Final
Negative for Legionella pneumophila Serogroup 1 antigen.
A negative result does not rule out the possiblity of
Legionella infection due to other serogroups or species of
Legionella. Clinical correlation is recommended.
05/08/23 20:12 Urine Streptococcus pneumoniae Antigen (M - Final
Negative for Streptococcus pneumoniae antigen.
A negative result does not exclude infection with
Streptococcus pneumoniae. Clinical correlation is
recommended.
05/08/23 15:08 Nasal Swab Influenza Types A & B (BLANCO) - Final
Negative for Influenza A & B, NAAT
Negative results must be combined with clinical observations
and patient history.
Nucleic Acid Amplification test (NAAT)performed on the
[employer] platform.
Diagnostic Testing:
Physical Exam
-
HEENT: Normocephalic and Anicteric
Cardiovascular: S1/S2, Peripheral Edema (negative) and Other (Tachycardic)
Respiratory: Wheeze (negative), Rales (bilaterally), Rhonchi (bilaterally) and Accessory Resp Muscle Use
GI: Soft, Non Distended, Non Tender and Normal Bowel Sounds
Neurology: Awake
Skin: Warm and Dry
General: Sweats (negative)
Exam:
Physical exam above represents prior to cardiac arrest
Assessment
-
Assessment: 77-year-old female with a past medical history of NICM, bronchiectasis, history of pneumonia, history of skin cancer, rheumatoid arthritis and history of Lyme disease who presents with shortness of breath, vomiting and hypotension.
When EMS arrived patient was hypotensive with SBP 65. Also concern for ST elevation. Patient hypothermic to 90 �F in the ER, tachycardic to 107, tachypneic to 30 breaths/min, and hypotensive to 85/55mmHg. Patient required 6 L/min nasal cannula
with SpO2 95%. She appeared disheveled with dry mucous membranes. Initial sodium 123, glucose 219, troponin 0.94, WBC 16, COVID-19 negative. CXR showed increased reticulonodular markings (L >R) suspicious for pneumonia. CT A/P showed wall
thickening from the sigmoid colon through the splenic flexure into the left side of the transverse colon compatible with colitis. She was given IV fluids with NS 0.9%, in addition to Zosyn. A total of 4 L of IV fluids were given however she
remained labile with her blood pressure. Patient transferred to the ICU for closer monitoring and critical care services consulted for additional management/recommendations.
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
Impression:
#Septic shock - likely due to infectious colitis + pneumonia + UTI
#CAP
#Infectious colitis
#Complicated UTI
#Lactic acidosis due to above
#Acute respiratory failure with hypoxemia on ventilation
#Stercoral colitis
#Hyponatremia - likely due to reduced PO intake recently with nausea/vomiting
#In-Hospital Cardiac Arrest - due to acidosis with PEA arrest s/p intubation with loss of respiratory drive
#Acute respiratory failure with hypoxemia now on mechanical ventilation s/p cardiac arrest
#Hyponatremia (mild)
#Elevated troponin - likely type II LA in setting of septic shock
#LBBB
#Suspected a-fib on admission currently sinus tachycardia
Plan:
- Broad spectrum Abx (vanc and farzad) and follow up infectious workup with blood, urine and sputum Cx
- If MRSA swab negative then DC IV vanco
- Continue mechanical intubation with daily SAT/SBT if clinically appropriate
- Lightly sedated with goal RASS -1 to -2; lower sedation to ensure pt is able to follow commands; she was reaching for tube after ROSC; hence given her hypotension with pressor requirements, will hold off on therapeutic hypothermia and instead
avoid fever
- Titrate FiO2 and PEEP to maintain SpO2 >90-94%
- Maintain plateau pressure <30
- Trend lactate level until <2mmol/L --> an additional 1 L was given during the code this AM (this would be her 5th liter since admission)
- Check random cortisol level (she did however already receive hydrocortisone last night) ---> if <10 then start hydrocortisone however this level will likely be low given she already received steroids
- Continue heparin gtt and continue to trend cTnI until begins to downtrend
- Cardiology on board as well as ID - recs appreciated
- Maintain MAP>65 and wean off vasopressors as tolerated --> would wean off epi gtt first and continue levophed; if levo requirements go >15 mcg/min then start vasopressin
- Maintain SpO2 >90-94%
- Replete K>4, Mg>2
- Give senna and colace to help improve her constipation seen on CT A/P
- stress ulcer ppx: PPI
- DVT ppx
- Guarded prognosis at this time --> if the lactate level begins to downtrend and we can get her Fio2 reduced, then I think she will do well and eventually get extubated. Currently she remains critically ill.
I updated the family members at bedside including the patient's , Abraham. I answered all of his questions and gave emotional support.
Critical care statement: A total of 40 minutes of critical care time was provided for this patient today. This includes management of unstable vital signs, evaluation of the patient at bedside, reviewing the patient's pertinent medical records
including radiographs, microbiology, laboratory evaluations, and� discussion with primary team, consultants, pharmacy, nutrition, physical therapy, case management, charge nurse, critical care nursing, and respiratory therapy.
Data:
CXR 05-09-2023: Improved aeration of the right lung base. Mild bibasilar atelectasis and stable slightly prominent interstitial lung markings.
CT Abd/Pelvis with IV contrast 05-08-2023:
IMPRESSION: Trace amount of pleural fluid in the right lower chest. Mild hazy groundglass opacity within both lower lungs, which could represent atelectasis and/or mild groundglass pneumonitis. Linear densities within the right lower lobe and right
middle lobe, which is likely dependent atelectasis.
Long segment of wall thickening extending from the sigmoid colon through the splenic flexure and into the left side of the transverse colon. This finding would be compatible with colitis. Infectious colitis would be the leading consideration. Main
differential considerations of ischemic colitis and inflammatory bowel disease. No evidence of free intraperitoneal air.
Periportal edema is present. There is a small amount of free fluid around the liver and spleen in both upper quadrants and also within the pelvis.
Enlarged right atrium and right ventricle with reflux of contrast to the IVC within the liver, suggesting elevated right heart pressure.
Not mentioned above, mild subcutaneous edema diffusely.
Large amount of stool distending the rectum, with mild perirectal edema, suggesting mild stercoral colitis.
TTE 05-09-2023:
Stat bedside study done pre and post intubation/code.� Study done on Levophed
�and epinephrine drips
�Preintubation left ventricle small with mild LVH and mildly reduced LV systolic
�function estimated 45-50% by Vazquez's method.� On Levophed.� Abnormal septal
�motion consistent with left bundle branch block without obvious regional wall
�motion abnormality.� Postcode EF visually estimated 55-60% on Levophed and
�epinephrine drips with apical septal hypokinesis.
�Right ventricle preintubation/code with overall preserved RV systolic function
�however postarrest appeared dilated and hypokinetic
�Right atrial dilatation
�Thickened mitral valve leaflets with systolic anterior motion of the mitral
�valve chordae with mild late systolic mitral regurgitation
�Trileaflet aortic valve without stenosis or regurgitation
�Structurally normal tricuspid valve with mild tricuspid regurgitation.
�Estimated pulmonary artery pressure post code estimated 38 mmHg assuming a
�right atrial pressure of 5 mmHg
�No pericardial effusion
�Compared to prior study dated 12/22/2022, there is mild apical hypokinesis with
�septal abnormality related to left bundle branch block with a EF estimated 45%.�
�Right ventricle was reported normal in size and function.� Mitral valve
�structurally normal with trace mitral regurgitation and no ALVAREZ.� Aortic valve
�sclerotic with mild AI.� Estimated pulmonary artery pressures previously 20-25
�mmHg.
[2023-05-09 08:30] LABS: Lactic Acid 8.8 mmol/L (0.7-2.0)
--- NOTE | 2023-05-09 08:45 | W.PN.HOSP.TC ---
Today's Communication/Plan
-
see bold
Assessment / Plan
Assessment / Plan
#PEA cardiac arrest 3/2
#Acute hypoxic respiratory failure
Appreciate chief operator reformer and cardiology help during code blue
Status post CPR with ROSC, patient intubated
Continue epinephrine drip, Levophed drip for MAP > 65
Continue IV Solu-Medrol
#Probable septic shock
#Lactic acidosis
Likely sources include aspiration pneumonia and translocation of bacteria from ischemic colitis
Continue vancomycin and Merrem, ID consulted
Follow-up on blood cultures, trend lactic acid
#Ischemic colitis
#Constipation with stercoral colitis
Patient presented with abdominal pain and vomiting, no diarrhea
Continue epinephrine drip, Levophed drip for MAP > 65
GI & general surgery following
#Non-ST elevation myocardial infarction
Appreciate cardiology input, Twelve-lead EKG does not Sgarbossa criteria for STEMI supported by clinical history and echo findings
#New onset rapid atrial fibrillation
Heparin drip, management as per cardiology
#Hypovolemic hyponatremia
Sodium improved
DVT prophylaxis�heparin drip
GI prophylaxis�IV PPI
Full code
Poor prognosis
Physical Exam
General: No acute respiratory distress noted
HEENT: Normocephalic, Atraumatic, EOMI, MMM
Respiratory: Tachypnea, accessory muscle use, retractions noted
Coarse breath sounds with occasional rhonchi
Cardiac: Normal S1/S2, Regular Rate and Rhythm
GI: Soft, Nontender, Nondistended, Normal Bowel Sounds
Extremities: No Clubbing, Cyanosis, or Edema
Neuro: Nonfocal/Grossly Intact
Psych: Calm, Cooperative
Derm: No Visible lesions
Critical care time 65 minutes
Anticipated Discharge: > 48 hours
Subjective/Interval History
-
Date of Service: May 09, 2023
Notified by nurse that patient had respiratory distress. On arrival, patient was tachypneic, with labored respirations. She was unable to provide much information.
Objective Data
-
Labs:
Laboratory Results
05/08/23 05/08/23 05/09/23
22:16 22:18 01:55
WBC 23.1 H
Hgb 13.1
Hct 37.8
Plt Count 219 D
APTT 24.3
HCO3 17.8 L
Sodium 132 L D
Potassium 4.6
Chloride 97 L
Carbon Dioxide 20 L
BUN 22 H
Creatinine 0.6
Glucose 190 H
Calcium 9.5
Total Bilirubin 2.0 H
AST 128 H
ALT 108 H
Alkaline Phosphatase 115
05/09/23 05/09/23 05/09/23
05:40 08:00 08:06
WBC Pending
Hgb Pending
Hct Pending
Plt Count Pending
APTT Pending
HCO3 15.0 L* Pending
Sodium
Potassium
Chloride
Carbon Dioxide
BUN
Creatinine
Glucose
Calcium
Total Bilirubin
AST
ALT
Alkaline Phosphatase
Vital Signs:
Vital Signs
Temp Pulse Resp BP Pulse Ox
98.8 F 104 42 130/115 88
05/09/23 07:40 05/09/23 05:45 05/09/23 05:45 05/09/23 05:04 05/09/23 05:45
I&O
05/08/23 05/09/23 05/10/23
06:59 06:59 06:59
Intake Total 1900 / 1999 200 / 200
Output Total 2185 / 2185
Balance -285 / -185 200 / 200
--- NOTE | 2023-05-09 08:56 | PHA.VAN.FU ---
Vancomycin Assessment / Plan
- Assessment
Renal Function: Stable
WBC's are: Trending Up
In the past 24 hrs, patient has been: Hypothermic (Tmin = 90)
Concomitant Antimicrobials: Azithromycin, Piperacillin-tazobactam
- Assessment - Therapeutic Drug Monitoring
Random Level: R = 17 ~ 8.5hrs post Vanc 2gm
- Dosing Plan
Adjust Regimen to: Vanc 1000mg IV Q12H
New Regimen Predicts: AUC (475), Peak (29), Trough (12.7)
- Monitoring Plan
No level(s) ordered at this time: Consider levels after 3/3 1800 dose
- Follow Up
Pharmacy will continue to follow.
Vancomycin Follow UP
- -
Patient Age: 77
Patient Sex: Female
Vancomycin Day #: 2
Indication: Pulmonary/Respiratory
Requesting Provider: Dr. Hanna
Pertinent Antimicrobial Allergies:
sulfa - unknown
Height / Weight:
Height 5 ft 4 in
Actual Weight 83.2 kg
Pertinent Past Medical History: BMI ~32
- Vital Signs / Lab Results
Temp Pulse Resp BP Pulse Ox
98.8 F 104 42 130/115 88
05/09/23 07:40 05/09/23 05:45 05/09/23 05:45 05/09/23 05:04 05/09/23 05:45
Lab Results - Hematology
05/08/23 05/08/23 05/09/23
14:40 16:45 01:55
WBC 16.1 H Cancelled 23.1 H
Lab Results - Chemistry
05/08/23 05/09/23
14:40 01:55
BUN 21 H 22 H
Creatinine 0.7 0.6
Estimated Creat Clear 85
Albumin 4.7 3.6
05/08/23 05/08/23 05/08/23
17:19 21:17 22:18
Lactic Acid 4.3 H* 4.2 H* 5.4 H*
05/09/23 05/09/23
01:55 07:36
Lactic Acid 5.4 H* 8.8 H*
Microbiology Results
05/08/23 20:12 Legionella Urinary Antigen - Final
Urine Negative for Legionella pneumophila Serogroup 1 antigen.
A negative result does not rule out the possiblity of
Legionella infection due to other serogroups or species of
Legionella. Clinical correlation is recommended.
Streptococcus pneumoniae Antigen (M - Final
Negative for Streptococcus pneumoniae antigen.
A negative result does not exclude infection with
Streptococcus pneumoniae. Clinical correlation is
recommended.
05/08/23 15:08 Influenza Types A & B (BLANCO) - Final
Nasal Swab Negative for Influenza A & B, NAAT
Negative results must be combined with clinical observations
and patient history.
Nucleic Acid Amplification test (NAAT)performed on the
[employer] platform.
Therapeutic Drug Monitoring
Random Vancomycin 17.0 ug/ml 05/09/23 01:55
[2023-05-09] MEDS: HEPARIN 25000 UNITS/250 ML IV (08:58)
[2023-05-09 09:03] LABS: Hematocrit 37.6 % (37.0-47.0); Hemoglobin 12.9 g/dL (12.0-16.0); Mean Corp Hgb Conc. 34.3 g/dL (33.0-37.0); Mean Corpuscular Hgb 31.9 pg (27.0-31.0); Mean Corpuscular Volume 93.1 fL (81.0-99.0); Mean Platelet Volume 9.8 fL (7.4-10.4); Platelet Count 202 10^3/uL (130-400); Red Blood Cell Count 4.04 10^6/uL (4.20-5.40); Red Cell Dist. Width 13.2 % (11.5-14.5)
[2023-05-09 09:13] LABS: APTT 28.2 Sec (23.4-35.0)
--- NOTE | 2023-05-09 09:13 | W.PN.ANESINT ---
Anesthesia Intubation Note
- Intubation Note
Intubation Note:
Diagnosis: respiratory distress
Blade: Glidescope 4
Tube Size: 8.0
Depth: 22cm
Side Taped: right
Drugs Used: propofol 100mg phenylephrine 200mcg X 2 rounds
Grade View: I
EtCO2 Present: +
Atraumatic: yes
Attempts: 1
Insertion Start and Stop Time: 905
SaO2 Pre: Unable to obtain
SaO2 Post: unable to obtain
Glidescope Used: yes
Other Airway Adjustments: no
Pre-Oxygenated: yes
Portable Chest X-Ray: to follow
RSI: no
Suctioned: no
Bilateral Breath Sounds Confirmed: equal bilateral
Vent Settings:
Settings per _X__Attending Physician
--- NOTE | 2023-05-09 09:20 | CON.ID ---
Addendum entered and electronically signed by Marlene Burnett MD 05/09/23 12:05:
Per precision filer hand, Dr. Matthews, patient does not have STEMI.
Original Note:
Consultation
-
Date/Time Consultation Requested: 05/09/2023, 0856
Date/Time Consultation Performed: 05/09/2023, 919
Requesting Provider: Dr. Josefina Lucero
Performing Provider: Dr. Marlene Burnett
Reason for Consultation: Septic shock
Chief Complaint / Past History
Chief Complaint
N/V/abd pain
History of Present Illness
History obtained from , daughter and review of medical records as patient is just intubated and sedated. She is a 77 year old female with HTN, bronchiectasis, nonischemic cardiomyopathy, who presented to ED yesterday with 1 day history of
nausea and vomiting. No fever or chills. She then developed abdominal pain. No diarrhea; was constipated. Also c/o SOB. In ED she was T=94, WBC 16, lactic acid 4.3, hypotensive SBP 80's, hypoxic. Troponin elevated. +Afib with RVR. LFT's elevated.
CT a/p: + wall thickening of sigmoid to left side of transverse colon. She was started on Vanco/Zosyn/Azithromycin for pneumonia and colitis. WBC, lactic acid, troponin continue to trend up. This AM EKG showed STEMI. STAFF RADIOLOGIST called due to respiratory
distress. She is now intubated. Per family, no recent travel. No ill contacts. No chest pain, only abd pain.
Past History
Additional Past Medical History:
HTN
Nonischemic cardiomyopathy
GERD
bronchiectasis
Left bundle branch block
Meningioma
Back pain
Left breast lumpectomy
SRAVANTHI, BSO
Sinus surgery
Allergy History:
WALDO Inhibitors Allergy (Verified 05/08/23 16:08)
Unknown
iodine Allergy (Verified 05/08/23 16:08)
Hives
Sulfa (Sulfonamide Antibiotics) Allergy (Verified 05/08/23 16:08)
Unknown
Medications Reviewed: Yes
Current Antibiotics:
Vancomycin D2
Meropenem 500mg IV q6h
Methylprednisolone 60mg IV q8
Social History
Tobacco: Former Smoker
Alcohol: Occasional
Drug: None
Personal:
Living: With Family
Family History
Family History: Not Pertinent
Review of Systems
Review of Systems
Unable to obtain as pt currently intubated, sedated.
Vital Signs
Temp Pulse Resp BP Pulse Ox
98.8 F 97 40 115/92 70
05/09/23 07:40 05/09/23 09:00 05/09/23 09:00 05/09/23 09:00 05/09/23 07:20
Selected Entries
05/08/23
16:44
Temp 90 F L
Physical Exam
Physical Exam
Constitutional: Acutely Ill and Obese
Head: Other (No frontal or maxillary sinus tenderness)
Eyes: No Conjunctival Hemorrhage
Cardiovascular: S1/S2 and Other (tachycardic)
Pulmonary: Clear (anteriorly)
Gastrointestinal: Soft, Non Tender and Decreased Bowel Sounds
Genito-Urinary: Negative CVA Tenderness
Extremities: Negative Edema
Skin: Negative Rash
Lab / Diagnostic Study Results
05/09/23 08:53
05/09/23 01:55
Abs Immat Gran (auto) 0.2 10^3/uL (0-0.05) H 05/09/23 01:55
Absolute Neuts (auto) 20.3 10^3/uL (1.4-6.5) H 05/09/23 01:55
Absolute Lymphs (auto) 0.9 10^3/uL (1.2-3.4) L 05/09/23 01:55
Absolute Monos (auto) 1.5 10^3/uL (0.1-0.6) H 05/09/23 01:55
Absolute Basos (auto) 0.1 10^3/uL (0-0.2) 05/09/23 01:55
Immature Gran % 0.8 % (0-0.5) H 05/09/23 01:55
Neutrophils % 88.1 % (42.2-75.2) H 05/09/23 01:55
Lymphocytes % 3.8 % (20.5-51.1) L 05/09/23 01:55
Monocytes % 6.6 % (1.7-9.3) 05/09/23 01:55
Eosinophils % 0.5 % (0-6) 05/09/23 01:55
Basophils % 0.2 % (0-2) 05/09/23 01:55
PT 14.2 Sec (11.4-14.6) 05/08/23 14:40
INR 1.10 05/08/23 14:40
Lactic Acid 8.8 mmol/L (0.7-2.0) H* 05/09/23 07:36
Microbiology Results
Micro:
05/08/23 20:12 Legionella Urinary Antigen - Final
Urine Negative for Legionella pneumophila Serogroup 1 antigen.
A negative result does not rule out the possiblity of
Legionella infection due to other serogroups or species of
Legionella. Clinical correlation is recommended.
Streptococcus pneumoniae Antigen (M - Final
Negative for Streptococcus pneumoniae antigen.
A negative result does not exclude infection with
Streptococcus pneumoniae. Clinical correlation is
recommended.
05/09/23 01:55 MRSA Screen - Pending
Nose
05/08/23 16:47 Blood Culture - Pending
Blood/Venous
05/08/23 16:46 Blood Culture - Pending
Blood/Venous
05/08/23 15:08 Influenza Types A & B (BLANCO) - Final
Nasal Swab Negative for Influenza A & B, NAAT
Negative results must be combined with clinical observations
and patient history.
Nucleic Acid Amplification test (NAAT)performed on the
[employer] platform.
05/09/23 CXR: Improved aeration of the right lung base. Mild bibasilar atelectasis and stable slightly prominent interstitial lung markings.
05/09/23 CXR: Increased right basilar opacity suggesting pneumonia versus atelectasis.
05/08/23 CT A/P with IV contrast: Trace amount of pleural fluid in the right lower chest. Mild hazy groundglass opacity within both lower lungs, which could represent atelectasis and/or mild groundglass pneumonitis. Linear densities within the right
lower lobe and right middle lobe, which is likely dependent atelectasis.Long segment of wall thickening extending from the sigmoid colon through the splenic flexure and into the left side of the transverse colon. This finding would be compatible
with colitis. No evidence of free intraperitoneal air.
05/08/23 CXR: Increased reticulonodular markings within both lungs, left slightly greater than right
Assessment / Plan
# SIRS/cardiogenic shock
# STEMI
# Suspect ischemic colitis over infectious colitis (no diarrhea)
# Possible aspiration from emesis
-Follow blood cx's
-Ordered sputum cx
- Can continue empiric Vancomycin and meropenem for now pending infection work-up
- Follow closely
[2023-05-09] MEDS: ADRENALIN 250 IV (09:30)
[2023-05-09] MEDS: SUBLIMAZE 50 MCG IV ×2 (09:40→23:00)
--- NOTE | 2023-05-09 09:45 | PTCARENOTE ---
Pt intubated at approximately 0910 for increase work of breathing and per MD order. PEA noted on monitor @ 0915...epi x 1; bicarb x 2 given per MD. CPR started. 919 2nd epi administered. 09 1gm IV ca+ given. ROSC obtained at 09. Epi gtt
initiated...see intervention. Pt vomitted large amt of liquid brown. Left nare [place] inserted....approximately 600mls. CXR done for ETT placement. Echo done. Post code ECG done. Will continue to monitor closely.
[2023-05-09 09:51] LABS: Hematocrit 34.5 % (37.0-47.0); Hemoglobin 11.8 g/dL (12.0-16.0); Mean Corp Hgb Conc. 34.2 g/dL (33.0-37.0); Mean Corpuscular Hgb 31.7 pg (27.0-31.0); Mean Corpuscular Volume 92.7 fL (81.0-99.0); Mean Platelet Volume 9.5 fL (7.4-10.4); Platelet Count 189 10^3/uL (130-400); Red Blood Cell Count 3.72 10^6/uL (4.20-5.40); Red Cell Dist. Width 13.2 % (11.5-14.5); White Blood Cell Count 22.9 10^3/uL (4.8-10.8)
--- NOTE | 2023-05-09 09:51 | W.PN.UPDATE ---
Update Note
Progress Note Update
Code Documentation:
Patient had worsening respiratory status and decision made to intubate. Anesthesia contacted. After intubation patient became bradycardic and lost pulse. PEA - ACLS began with CPR, a total of 2 mg epinephrine given as well as 2 A of bicarb, 1 g
calcium. ROSC obtained and Levophed drip and epinephrine drip started. Ventilator adjusted with respiratory rate raised to 30, TV 450. FiO2 100%, PEEP 5. notified by primary hospitalist, Dr. Lucero. Rail Crew Member, Dr. Matthews, also
assisted with code efforts. is en route to ICU. Will continue with full medical treatment. Patient remains full code at this time. Guarded prognosis.
[2023-05-09] MEDS: SOLU-MEDROL PF 125 MG IV (09:52)
[2023-05-09] MEDS: MERREM 500 MG IV ×3 (10:00→21:53)
[2023-05-09] MEDS: STERILE WATER FOR INJECTION 10 ML IV ×2 (10:00→21:54)
[2023-05-09 10:01] LABS: INR 1.48; PT 17.8 Sec (11.4-14.6)
[2023-05-09 10:02] LABS: APTT 32.2 Sec (23.4-35.0)
[2023-05-09 10:20] LABS: Blood Urea Nitrogen 24 mg/dl (7-17); Calcium 9.3 mg/dl (8.4-10.2); Carbon Dioxide 19 mmol/L (22-30); Chloride 101 mmol/L (98-107); Estimated Creatinine Clearance 56 ml/min; Glucose 162 mg/dl (70-99); Magnesium 2.2 mg/dl (1.6-2.3); Phosphorus 5.1 mg/dl (2.5-4.5); Potassium 4.1 mmol/L (3.5-5.1); Sodium 134 mmol/L (135-145); eGFR > 60.00
[2023-05-09 10:38] LABS: Procalcitonin 5.07 ng/ml (0.0-0.25)
[2023-05-09] MEDS: SODIUM BICARBONATE 1150 MEQ IV (11:08)
[2023-05-09] MEDS: VANCOCIN 200 IV ×2 (11:14→17:14)
--- NOTE | 2023-05-09 11:32 | CON.GS ---
Addendum entered and electronically signed by Rom Aguilera MD 05/09/23 13:14:
I saw and examined the patient independently.
The Proofer Prepress's note was reviewed and I agree with the note, assessment and plan except where noted below.
Comment: This is a 77-year-old female with history of cardiomyopathy, hypertension and history of a total abdominal hysterectomy BSO who presents with SOB and malaise that began night followed by abdominal pain, nausea/vomiting who on
arrival yesterday was hypotensive, tachycardic and hypoxic. Initial lactate was 4.3, with WBC 16, and a +troponin of 0.98. Her EKG showed widened QRS and was read as A-fib with RVR. She underwent CT scan which demonstrated some colitis in the
typical watershed area of the splenic flexure for which general surgery/colorectal surgery has been consulted. She had a cardiac arrest earlier this morning with ROSC and found to have an DE. She is currently intubated and sedated on pressors and
critically ill in the ICU. Much of her history is obtained from the chart, and family who are at bedside. They state that she was in her usual state of health up until when she started having shortness of breath followed by abdominal pain
nausea and vomiting. On exam she was reported to have some mild tenderness in the abdomen but not peritonitic. Her exam is fairly benign currently but she is sedated and was recently given paralytics. I reviewed her CT scan personally, there is
thickening of her left colon consistent with colitis of unclear etiology though I would favor ischemic over embolic or infectious. On presentation she was hypotensive/hypoxic which likely led to the low flow in the distribution of the splenic
flexure.
No urgent surgical intervention warranted at this time
Supportive care for ischemic colitis:
-N.p.o., IV fluids, IV broad-spectrum antibiotics, will defer to ID
-NG tube to low intermittent wall suction
-Trend lactate
Need to treat her underlying cause of shock likely cardiopulmonary in etiology.
Colorectal surgery will continue to follow.
Original Note:
Consultation
-
Requesting Provider: Estella
Reason for Consultation: Concern for ischemic bowl
Medical History
-
Chief Complaint: vomiting
History of Present Illness:
This is a 77 yo female with a h/o NICM, HTN, GERD, SRAVANTHI/BSO who presented with generalized abdominal complaints with nausea and vomiting brought in by paramedics and noted to be hypotensive and tachycardic in the field. She was a code 9 this morning
with cardiac event/STEMI and is currently intubated, sedated and on pressors. Her history was obtained from the chart, primary nurse and family at bedside. She had noted vomiting yesterday of non-bloody emesis. Last BM was 2 days ago per her family
and they note that yesterday, she felt as though she should have a BM but was unable. She had general abdominal discomfort without significant distention. Her primary nurse reports that this morning, she had minimal tenderness to the left abdomen
with deep palpation only. She had NGT placement prior to exam with bilous/blood tinged outputs noted of around 500ml. There is mild distention on exam without significant tenderness although patient is now sedated and exam is limited.
Past Medical History
Past Medical History: GERD, HTN, Hypercholesterolemia and Other (NICM)
Past Surgical History: Gynecological (SRAVANTHI/BSO) and Other (sinus surgery, left breast lumpectomy)
Social History
Tobacco: Former Smoker
Alcohol: Daily (daily glass of champagne)
Family History
Family History: Reviewed & Not Pertinent
Allergies / Home Medications
Allergy/AdvReac Type Severity Reaction Status Date / Time
WALDO Inhibitors Allergy Unknown Verified 05/08/23 16:08
iodine Allergy Hives Verified 05/08/23 16:08
Sulfa (Sulfonamide Allergy Unknown Verified 05/08/23 16:08
Antibiotics)
Medication Instructions Recorded Confirmed Type
albuterol sulfate 90 mcg/actuation 2 puff inhalation R Q6 PRN 05/08/23 05/08/23 History
aerosol inhaler sob/wheezing
cetirizine 10 mg tablet (Zyrtec) 10 mg PO HS 05/08/23 05/08/23 History
hydrochlorothiazide 50 mg tablet 50 mg PO DAILY 05/08/23 05/08/23 History
irbesartan 150 mg tablet 150 mg PO DAILY 05/08/23 05/08/23 History
multivitamin 1 tab PO DAILY 05/08/23 05/08/23 History
omeprazole 20 mg capsule,delayed 20 mg PO DAILY 05/08/23 05/08/23 History
release
potassium chloride 20 mEq 20 meq PO DAILY 05/08/23 05/08/23 History
tablet,extended release(part/cryst)
Review of Systems
-
Unable to obtain full review of systems at this time due to: Patient Intubation
A 10 point review of systems was completed, and was negative except as per HPI.
Physical Exam
Vital Signs
Temp Pulse Resp BP Pulse Ox
98.8 F 97 40 115/92 99
05/09/23 07:40 05/09/23 09:00 05/09/23 09:00 05/09/23 09:00 05/09/23 09:10
05/08/23 05/09/23 05/10/23
06:59 06:59 06:59
Actual Weight 83.2 kg
Body Mass Index (BMI) 31.5
Lab Results
05/09/23 09:45
05/09/23 09:45
WBC 22.9 10^3/uL (4.8-10.8) H 05/09/23 09:45
Hgb 11.8 g/dL (12.0-16.0) L 05/09/23 09:45
Hct 34.5 % (37.0-47.0) L 05/09/23 09:45
Plt Count 189 10^3/uL (130-400) 05/09/23 09:45
Abs Immat Gran (auto) 0.2 10^3/uL (0-0.05) H 05/09/23 01:55
Neutrophils % 88.1 % (42.2-75.2) H 05/09/23 01:55
Physical Exam
General: Intubated
HEENT: Moist Mucous Membranes
Respiratory: Other (vdrf)
GI: Soft, Non Tender and Distended (mild)
Skin: Warm and Dry
Neuro: Sedated
Data Reviewed
-
CT Scan: Image Personally Visualized and interpreted, Report Reviewed by me, Discussed with Physician, Discussed with Nurse and Discussed with Family
Labs: Labs Reviewed by me, Discussed with Physician and Discussed with Family
Old Records: Reviewed
Assessment / Plan
-
77 yo female who presented with vomiting without diarrhea, tachycardia and hypotension s/p intubation and initiation of pressors this am with STEMI seen in evaluation today given sigmoid colon thickening/colitis infectious vs ischemic on CT imaging
yesterday evening. GI following as well. NGT after intubation with about 500ml of bilious/blood tinged emesis noted. Afebrile. Significant leukocytosis noted with metabolic acidosis.
Given cardiac events with VDRF/Pressors. Unstable for any operative intervention.
--- NOTE | 2023-05-09 11:41 | W.PN.CARDCBS ---
Addendum entered and electronically signed by Sue Matthews DO 05/09/23 23:11:
Reviewed clinical case, EKGs and echo with interventional cardiology on-call
Original Note:
Today's Communication / Plan
-
See above
Impression / Plan
-
PCP: Willy Bragg
[employer] Sales Representative: Dr. Ravinder Flores
Impression:
-Presents 05/07/2022 nausea/vomiting, abd pain with elevated lactate [initial lactate 4.3, WBC 16, procalcitonin 5.07] who was hypothermic and SOB with hypoxia.
-CT abdomen pelvis with transverse to sigmoid colitis, infectious versus ischemic: ' Infectious colitis would be the leading consideration. Ischemia could be considered, and there is moderate atherosclerotic disease. However, the degree of narrowing
of the origin of the SMA is less than is usually seen in association with ischemic bowel disease. The MARGARITO is also patent. There are separate origins of the splenic and hepatic arteries. No small bowel obstruction.'
-Right-sided pneumonitis versus pneumonia, possible aspiration
-COVID/influenza negative
-Worsening respiratory distress/hypoxia with lactic acidosis/metabolic acidosis 05/09/2023 status post intubation
-PEA arrest 05/09/2023 following intubation, patient became bradycardic and lost pulse. ROSC post CPR, 2 mg epinephrine and 2 A of bicarb as well as 1 g of calcium.
-Sinus tachycardia with known left bundle branch block; possible brief atrial fibrillation
-Non-STEMI with abnormal troponin, initially 0.984. Initial proBNP 138. Twelve-lead EKG does not Sgarbossa criteria for STEMI supported by clinical history and echo findings
-Marked hyponatremia on admission, 123
Cardiomyopathy
Hypertension
Aortic regurgitation, mild
LBBB (left bundle branch block)
Bronchiectasis, follows with Dr. Guzman
Lung nodules
History of pneumonia
Skin cancer
History of polio no sequela
Low back pain due to degenerative disc disease and degenerative joint disease
History of Lyme's disease
Meningioma right frontal inner calvarial table
Popliteal vein aneurysm
Rheumatoid arthritis�
Scoliosis
Varicose vein stripping
Left breast lumpectomy
Total abdominal hysterectomy bilateral salpingo-oophorectomy
Sinus surgery
Echo December 2022: EF 45% with apical hypokinesis, LVH and mild AR.
Lexiscan MIBI January 2023: normal myocardial perfusion with preserved ejection fraction
Plan:
Critically ill 77-year-old female status post intubation and PEA cardiac arrest this morning
-ROSC achieved following CPR, epi x 2 and bicarb
-Ventilator management per automation mechanic
-Hemodynamic support currently on Levophed and epinephrine
-Bedside echocardiogram done just prior to intubation/code and immediately following code: Precode LV ejection fraction estimated 45-50% with paradoxical septal motion consistent with known left bundle branch block, mild mitral regurgitation and no
pericardial effusion. No obvious regional wall motion abnormality. Postcode, LV ejection fraction more vigorous on pressors with apical septal hypokinesis and septal abnormality related to left bundle branch block. Mitral regurgitation with ALVAREZ
appears mild and late systolic. RV appears dilated and hypokinetic. No pericardial effusion.
-Twelve-lead EKGs reviewed with interventional cardiology. Abnormal ST segments with underlying left bundle branch block however no STEMI. I do not feel her decompensation is related to primary cardiac event
-Increasing lactic acidosis/WBC and abnormal procalcitonin with CT abdomen pelvis raising concern for colitis, ischemic versus infectious. Also concern for pneumonia, possibly aspiration
-Antibiotics per ID and primary
-GI and surgery consulted
Non-STEMI in the setting of critical illness
-Continue to trend cardiac troponins to peak, have increased to 4.38
-Support hemodynamics
-Aspirin 81 mg daily and continue heparin drip
-Lexiscan nuclear stress test 01/08/2023 with normal perfusion and EF estimated 65%. Can consider further ischemic evaluation when she has recovered from his critical illness
Possible atrial fibrillation on admission currently sinus tachycardia
-Will continue to monitor on telemetry
-Continue IV heparin
Updated patient's
Discussed case/care with automation mechanic and hospitalist
Prognosis guarded
Progress Note - [employer] Sales Representative
Subjective
Date of Service: May 09, 2023
Patient examined over multiple hours this morning with worsening shortness of breath and acidosis with hypoxia requiring intubation. Patient was able to speak with her prior to intubation and agreed to full code. She has denied chest pain
or pressure. Denied abdominal pain
Objective
Labs:
05/09/23 09:45
05/09/23 09:45
Labs
Hgb 11.8 g/dL (12.0-16.0) L 05/09/23 09:45
Hct 34.5 % (37.0-47.0) L 05/09/23 09:45
Plt Count 189 10^3/uL (130-400) 05/09/23 09:45
PT 17.8 Sec (11.4-14.6) H 05/09/23 09:45
INR 1.48 05/09/23 09:45
APTT 32.2 Sec (23.4-35.0) 05/09/23 09:45
Sodium 134 mmol/L (135-145) L 05/09/23 09:45
Potassium 4.1 mmol/L (3.5-5.1) 05/09/23 09:45
BUN 24 mg/dl (7-17) H 05/09/23 09:45
Creatinine 0.9 mg/dL (0.6-1.0) 05/09/23 09:45
Glucose 162 mg/dl (70-99) H 05/09/23 09:45
Troponins
05/08/23 05/08/23 05/09/23
14:40 19:34 01:55
Troponin I 0.984 H* 2.270 H* D 2.390 H*
05/09/23 05/09/23 05/09/23
07:36 08:26 08:47
Troponin I Cancelled Cancelled 3.870 H* D
05/09/23
09:45
Troponin I 4.380 H*
Vital Signs and I&O:
Vital Signs
Temp Pulse Resp BP Pulse Ox
98.8 F 97 40 115/92 99
05/09/23 07:40 05/09/23 09:00 05/09/23 09:00 05/09/23 09:00 05/09/23 09:10
Vital Signs
Temp Pulse Resp BP Pulse Ox
98.8 F 97 40 115/92 99
05/09/23 07:40 05/09/23 09:00 05/09/23 09:00 05/09/23 09:00 05/09/23 09:10
Intake & Output
05/07/23 05/08/23 05/09/23 05/10/23
06:59 06:59 06:59 06:59
Intake Total 1899 / 1999 310 / 310
Output Total 2185 / 2185
Balance -285 / -185 310 / 310
Physical Exam
Physical Exam
General: Acute respiratory distress prior to intubation but awake alert and oriented and conversant
Heart: Regular, tachycardic positive S1-S2, no murmur
Lungs: Bronchovesicular breath sounds with rhonchi and decreased right base.
Abd: Soft and mildly distended. Positive bowel sounds
Ext: No edema. Positive varicose veins
Neuro: nonfocal
--- NOTE | 2023-05-09 12:00 | PTCARENOTE ---
Pt remains intubated and sedated. Family fully updated and at bedside. ETT repositioned to 19cm right lip after CXR done. IVF's w/ NaHCO3 infusing. Heparin, levophed, diprivan, and epi gtts infusing. See interventions. Prn fentanyl given per
protocol. Will continue to monitor closely.
[2023-05-09 13:41] LABS: Urine Albumin 2+ (Neg - Trace); Urine Bilirubin 1+ (Negative); Urine Character Slightly Cloudy (Clear); Urine Glucose Negative (Negative); Urine Ketone Trace (Negative); Urine Leukocyte 1+ (Negative); Urine Nitrite Positive (Negative); Urine Occult Blood 4+ (Negative); Urine Specific Gravity 1.015 (<1.030); Urine Urobilinogen 3+ (Neg - 1+)
[2023-05-09 13:42] LABS: Urine Color Amber
[2023-05-09] MEDS: SOLU-MEDROL PF 60 MG IV ×2 (13:43→21:53)
[2023-05-09 13:46] LABS: B.E. -2.8 mmol/L; HCO3 23.2 mmol/L (21-28); PCO2 44 mmHg (32-35); PO2 390 mmHg (83-108); pH 7.33 (7.35-7.45)
[2023-05-09 13:53] LABS: Lactic Acid 4.6 mmol/L (0.7-2.0)
[2023-05-09 14:04] LABS: Urine Urothelial Cell 0-2 /LPF (FEW)
[2023-05-09 14:05] LABS: Urine Bacteria Moderate (Negative); Urine White Cell 16-20 /HPF (0-5)
[2023-05-09 15:36] LABS: Triglycerides 114 mg/dl (10-149)
--- NOTE | 2023-05-09 16:15 | PTCARENOTE ---
Pt remains intubated and sedated. Increased pressor doses required...attempted to wean epi gtt but unsuccessful. Will discuss w/ MD about adding a 3rd pressor if BP continues to be low. Urine output slowly decreasing. Will continue to monitor
closely.
--- NOTE | 2023-05-09 16:22 | CHAP ---
Responded to code at 9:15. Stopped back in afternoon to check on Leatha and family members. , son and daughter said they were okay - we prayed together at bedside. A prayer blanket was provided.
[2023-05-09] MEDS: ADRENALIN 258 MG IV (16:32)
[2023-05-09] MEDS: NSS IV (16:39)
[2023-05-09] MEDS: DIPRIVAN 100 IV ×2 (16:39→22:40)
[2023-05-09] MEDS: PROTONIX IV 40 MG IV (17:13)
[2023-05-09] MEDS: NSS (PRESERVATIVE FREE) 10 ML IV (17:13)
[2023-05-09 17:21] LABS: Lactic Acid 5.2 mmol/L (0.7-2.0)
[2023-05-09] MEDS: PITRESSIN 100 IV (17:30)
[2023-05-09 18:46] LABS: Cortisol, Random > 123.0 ug/dl
[2023-05-09] MEDS: LEVOPHED 258 MG IV (19:59)
--- NOTE | 2023-05-09 20:00 | PTCARENOTE ---
patient received in bed, intubated and sedated on Propofol. Bilateral wrist restraints maintained. Sinus Tachycardia on monitor, afebrile, blood pressure as documented. Palpable pulses throughout, no edema noted. #8 ETT at 19 cm at the right,
tolerating vent settings of A/C 30 TV 450 FIO2 50% Peep 5, lungs coarse bilaterally, pulse ox 94%%. [place] sump in left nare to LIS, draining brown/maroon. Abdomen soft round with hypoactive bowel sounds. Martinez catheter draining small amounts of
tea colored urine. #20 g in left wrist and #20 g in left forearm flushed and patent. #20 g in right forearm with IVF and Propofol gtt infusing as documented. #18 g in RAC with Heparin, Vasopressin, Epinephrine and Levophed gtts infusing as
documented. at bedside
[2023-05-09] MEDS: NSS 250 IV (20:02)
--- NOTE | 2023-05-09 22:12 | W.PN.ANESINT ---
Anesthesia Intubation Note
- Intubation Note
Intubation Note:
Diagnosis: accidental extubation
Blade: Glidescope 4
Tube Size: 8
Depth: 21cm
Side Taped: right
Drugs Used: none
Grade View: I
EtCO2 Present: +
Atraumatic: Yes
Attempts: 1
Insertion Start and Stop Time:
SaO2 Pre: 79
SaO2 Post: 80
Glidescope Used: yes
Other Airway Adjustments: no
Pre-Oxygenated: yes
Portable Chest X-Ray: to follow
RSI:no
Suctioned: no
Bilateral Breath Sounds Confirmed: yes
Vent Settings:
Settings per _X__Attending Physician
[2023-05-09] MEDS: ZYRTEC PO (22:45)
--- NOTE | 2023-05-09 22:45 | W.PN.UPDATE ---
Update Note
Progress Note Update
2210 ETT fell out of position. Requiring reintubation by CABLE INSTALLER. Post xray intubation showing ETT in proper position. Patient camelia throughout procedure.
--- NOTE | 2023-05-09 22:46 | PTCARENOTE ---
CXR completed due to questionable ETT placement, while patient was sat up for Xray , patient not maintaining tidal volumes, patient being bagged, notified fisher trot line PRODUCTION PLANNING SUPERVISOR, ETT not in place, REPAIRER CONTROLLER TESTER at bedside, reintubated at 21cm at the right lip, no
changes in assessment.
[2023-05-09 22:57] LABS: APTT 75.4 Sec (23.4-35.0)
[2023-05-09 22:58] LABS: Lactic Acid 5.6 mmol/L (0.7-2.0)
--- NOTE | 2023-05-09 23:00 | PTCARENOTE ---
left radial Barbara placed by Armand CASTLE
[2023-05-09] MEDS: ASPIRIN 325 MG PO (23:15)
--- NOTE | 2023-05-09 23:15 | PTCARENOTE ---
Labs noted, order received by Dr. Matthews
[2023-05-10 00:04] VITALS: BP 105/79
--- NOTE | 2023-05-10 00:16 | PTCARENOTE ---
patient reassessed, vasopressors remain at current rates, ABG sent, no changes in assessment
[2023-05-10 00:21] LABS: B.E. -4.2 mmol/L; HCO3 22.6 mmol/L (21-28); Ionized Calcium 1.12 mMOL/L (1.15-1.33); PCO2 47 mmHg (32-35); PO2 340 mmHg (83-108); Sodium 128 mMOL/L (136-145); pH 7.29 (7.35-7.45)
--- NOTE | 2023-05-10 00:22 | W.PN.UPDATE ---
Update Note
Progress Note Update
Procedure Note: Arterial Line�
� Left Wrist Arrow 20 (05/10)�
Diagnosis:��Septic shock
IV Line Comments: Uneventful Procedure�
Joey's test completed pre-procedure: Yes�
A-Line Comments: Sterile technique as per standard protocol, Ultrasound guided insertion�
Functioning A-line in situ: Yes�
A-line Insertion Start Time:��2330
A-line in at:��2235
[2023-05-10 01:05] VITALS: BP 102/85
[2023-05-10] MEDS: CALCIUM CHLORIDE 10% SYRINGE 60 MG IV (01:11)
[2023-05-10] MEDS: LEVOPHED 258 MG IV ×5 (01:14→22:01)
[2023-05-10] MEDS: SODIUM BICARBONATE 1150 MEQ IV ×3 (01:55→23:30)
[2023-05-10] MEDS: PITRESSIN 100 IV ×3 (02:47→20:00)
--- NOTE | 2023-05-10 04:00 | PTCARENOTE ---
patient reassessed, crackles and left base, incontinent of small brown smear, CHG bath given, no other changes. Labs sent
[2023-05-10] MEDS: MERREM 500 MG IV ×3 (04:03→17:25)
[2023-05-10] MEDS: STERILE WATER FOR INJECTION 10 ML IV ×3 (04:04→17:25)
[2023-05-10] MEDS: ADRENALIN 258 MG IV ×2 (04:06→17:00)
[2023-05-10 04:31] LABS: B.E. -5.7 mmol/L; HCO3 21.5 mmol/L (21-28); PCO2 48 mmHg (32-35); PO2 173 mmHg (83-108); pH 7.26 (7.35-7.45)
[2023-05-10 04:45] LABS: APTT 68.5 Sec (23.4-35.0)
[2023-05-10 04:51] LABS: Lactic Acid 5.2 mmol/L (0.7-2.0)
[2023-05-10 04:53] LABS: % Basophils 0.2 % (0-2); % Immature Granulocytes 1.3 % (0-0.5); % Lymphocytes 7.1 % (20.5-51.1); % Monocytes 7.2 % (1.7-9.3); % Neutrophils 84.2 % (42.2-75.2); Absolute Immature Granulocytes 0.3 10^3/uL (0-0.05); Absolute Lymphocytes 1.8 10^3/uL (1.2-3.4); Absolute Monocytes 1.8 10^3/uL (0.1-0.6); Absolute Neutrophils 20.7 10^3/uL (1.4-6.5); Hematocrit 36.2 % (37.0-47.0); Hemoglobin 12.5 g/dL (12.0-16.0); Mean Corp Hgb Conc. 34.5 g/dL (33.0-37.0); Mean Corpuscular Hgb 31.6 pg (27.0-31.0); Mean Corpuscular Volume 91.6 fL (81.0-99.0); Mean Platelet Volume 10.4 fL (7.4-10.4); Nucleated Red Blood Cells % 0 %; Platelet Count 139 10^3/uL (130-400); Red Blood Cell Count 3.95 10^6/uL (4.20-5.40); Red Cell Dist. Width 13.2 % (11.5-14.5); White Blood Cell Count 24.6 10^3/uL (4.8-10.8)
[2023-05-10 04:58] LABS: Albumin 3.1 g/dl (3.5-5.0); Alkaline Phosphatase 79 U/L (38-126); Blood Urea Nitrogen 43 mg/dl (7-17); Calcium 8.5 mg/dl (8.4-10.2); Carbon Dioxide 20 mmol/L (22-30); Chloride 95 mmol/L (98-107); Estimated Creatinine Clearance 34 ml/min; Glucose 239 mg/dl (70-99); Magnesium 2.4 mg/dl (1.6-2.3); Phosphorus 6.9 mg/dl (2.5-4.5); Potassium 4.6 mmol/L (3.5-5.1); Sodium 130 mmol/L (135-145); Total Bilirubin 1.6 mg/dl (0.2-1.3); Total Protein 5.2 g/dl (6.3-8.2); eGFR 36.12
[2023-05-10] MEDS: HEPARIN 25000 UNITS/250 ML IV ×2 (05:30→23:29)
[2023-05-10] MEDS: VANCOCIN 200 IV (05:31)
[2023-05-10] MEDS: DIPRIVAN 100 IV ×3 (05:31→22:01)
[2023-05-10] MEDS: SOLU-MEDROL PF 60 MG IV ×3 (05:31→21:27)
[2023-05-10] MEDS: NOVOLOG FLEXPEN-MODERATE RESISTANCE 3 UNITS SC ×2 (05:46→12:16)
[2023-05-10 06:00] VITALS: BMI 33.7
[2023-05-10 06:10] LABS: ALT (SGPT) > 7500 U/L (0-35); AST (SGOT) > 7500 U/L (14-36)
[2023-05-10 06:47] LABS: Fibrinogen 382 MG/DL (199-459); INR 2.38; PT 25.8 Sec (11.4-14.6)
[2023-05-10 06:58] LABS: Ammonia 77 umol/L (9-30)
--- NOTE | 2023-05-10 07:54 | PHA.VAN.FU ---
Vancomycin Assessment / Plan
- Assessment
Renal Function: SCR Increasing (0.9 to 1.5 today)
WBC's are: Trending Up
In the past 24 hrs, patient has been: Afebrile
Concomitant Antimicrobials: Meropenem
- Dosing Plan
Adjust Regimen to: Dose by level
- Monitoring Plan
Random Level: 3/4 AM
- Follow Up
Pharmacy will continue to follow.
Vancomycin Follow UP
- -
Patient Age: 77
Patient Sex: Female
Vancomycin Day #: 3
Indication: Pulmonary/Respiratory
Requesting Provider: Dr. Hanna
Pertinent Antimicrobial Allergies:
sulfa - unknown
Height / Weight:
Height 5 ft 4 in
Actual Weight 89.1 kg
Pertinent Past Medical History: BMI ~32
- Vital Signs / Lab Results
Temp Pulse Resp BP Pulse Ox
98.4 F 117 37 102/85 96
05/10/23 07:30 05/10/23 06:00 05/10/23 06:00 05/10/23 01:05 05/10/23 03:54
Lab Results - Hematology
05/08/23 05/08/23 05/09/23
14:40 16:45 01:55
WBC 16.1 H Cancelled 23.1 H
05/09/23 05/09/23 05/10/23
08:53 09:45 04:21
WBC 27.0 H 22.9 H 24.6 H
Lab Results - Chemistry
05/08/23 05/09/23 05/09/23
14:40 01:55 09:45
BUN 21 H 22 H 24 H
Creatinine 0.7 0.6 0.9
Estimated Creat Clear 85 56
Albumin 4.7 3.6
05/10/23
04:21
BUN 43 H
Creatinine 1.5 H
Estimated Creat Clear 34
Albumin 3.1 L
05/08/23 05/08/23 05/08/23
17:19 21:17 22:18
Lactic Acid 4.3 H* 4.2 H* 5.4 H*
05/09/23 05/09/23 05/09/23
01:55 07:36 13:26
Lactic Acid 5.4 H* 8.8 H* 4.6 H*
05/09/23 05/09/23 05/10/23
17:00 22:35 04:21
Lactic Acid 5.2 H* 5.6 H* 5.2 H*
Lab Results - Urine
05/09/23
13:26
Urine Nitrite (Reflex) Positive A
Leukocyte Esterase Rfl 1+ A
Ur Squamous Epith Cells 6-10
Microbiology Results
05/08/23 16:47 Blood Culture - Preliminary
Blood/Venous No Growth in 24 hours- Final report to follow
05/08/23 16:46 Blood Culture - Preliminary
Blood/Venous No Growth in 24 hours- Final report to follow
05/09/23 13:26 Gram Stain - Preliminary
Sputum
05/08/23 20:12 Legionella Urinary Antigen - Final
Urine Negative for Legionella pneumophila Serogroup 1 antigen.
A negative result does not rule out the possiblity of
Legionella infection due to other serogroups or species of
Legionella. Clinical correlation is recommended.
Streptococcus pneumoniae Antigen (M - Final
Negative for Streptococcus pneumoniae antigen.
A negative result does not exclude infection with
Streptococcus pneumoniae. Clinical correlation is
recommended.
05/08/23 15:08 Influenza Types A & B (BLANCO) - Final
Nasal Swab Negative for Influenza A & B, NAAT
Negative results must be combined with clinical observations
and patient history.
Nucleic Acid Amplification test (NAAT)performed on the
[employer] platform.
Therapeutic Drug Monitoring
Random Vancomycin 17.0 ug/ml 05/09/23 01:55
--- NOTE | 2023-05-10 08:00 | PTCARENOTE ---
Assumed care of patient. Pt rec'd sedated and intubated. Pupils 3/sluggish. Bilateral wrist restraints. No purposeful movements and does not follow commands. S1 S2 reg w/ ST/1st degree AVB/BBC on monitor. Weak PP. Scleral and orbital +1 edema
noted. #8 ETT 21cm right lip. Current vent settings: 32/450/+5/50%. Sat challenging to obtain due to cold extremities....monitoring ABG results. Lungs clear...diminished and coarse in bases. Abdomen obese...(L) nare [place] -> LIWS...draining
brownish liquid. Martinez draining scant tea colored urine. Skin pale and cool. Left radial valerie noted...flushed and zeroed. Multiple peripheral sites....IVF's, Levo, Vaso, Hep, Epi, Dip gtts infusing...see interventions. VS documented. Will
continue to monitor closely.
[2023-05-10] MEDS: SUBLIMAZE 50 MCG IV (08:06)
[2023-05-10] MEDS: NSS (PRESERVATIVE FREE) 10 ML IV ×2 (08:07→20:00)
[2023-05-10] MEDS: PROTONIX IV 40 MG IV ×2 (08:08→20:00)
[2023-05-10] MEDS: LOW STRENGTH ASPIRIN 81 MG PO (08:08)
--- NOTE | 2023-05-10 08:15 | PTCARENOTE ---
Amiodarone gtt ordered per cardiology. Afib confirmed by ECG.
[2023-05-10 08:44] VITALS: BMI 33.7
--- NOTE | 2023-05-10 08:45 | W.PN.GI.CBS2 ---
Addendum entered and electronically signed by Bennie Rodriguez MD 05/10/23 10:11:
transaminases markedly elevated c/w shock liver
pt critically ill presents more like mesenteric ischemia then ischemic colitis.
Original Note:
Today's Communication / Plan
-
increase PPI to bid
Assessment / Plan
-
The patient is a 77-year-old female with a past medical history significant for hypertension, GERD, bronchiectasis, chronic left bundle branch block, nonischemic cardiomyopathy, hyperlipidemia, osteoarthritis, who presented to the emergency room
with complaints of vomiting. We are being asked to evaluate for colitis. She notes acute onset of nausea and vomiting with subsequent abdominal pain. Hypotensive and tachycardic on admission, admitted to the ICU for severe sepsis now with worsening
acidosis. Concerning for ischemic process. Started on IV abx with Zosyn, Vancomycin, and Azithromycin. +respiratory distress. Hypotensive not on pressors. +Lactic acidosis. No diarrhea or signs of bleeding without further vomiting.
Problem list:
-nausea, vomiting
-abdominal pain
-Severe sepsis 2/2 GI source v pneumonia
-lactic acidosis
-metabolic acidosis
-hyponatremia
-CT imaging showing colitis at SC, SF, TC/stercoral colitis (other findings as noted above)
-hypoxic respiratory failure requiring NRB
Other pertinent medical hx:
-GERD
-HTN
-bronchiectasis
-chronic LBBB
-non-ischemic cardiomyopathy
-HLD
-OA
septic shock
rising troponins
Recommendations:
- increase PPI IV to bid
- continue antibiotics
- no diarrhea to send stool studies
- no other recommendations, will sign off
Subjective
Subjective
Date of Service: May 10, 2023
Pt remains intubated, critically ill
Objective
Data Reviewed
Laboratory Data:
Laboratory Results
05/10/23 04:21
05/10/23 04:21
Laboratory Results
PT Cancelled 05/10/23 11:00
INR Cancelled 05/10/23 11:00
APTT 68.5 Sec (23.4-35.0) H 05/10/23 04:21
Phosphorus 6.9 mg/dl (2.5-4.5) H 05/10/23 04:21
Magnesium 2.4 mg/dl (1.6-2.3) H 05/10/23 04:21
Total Bilirubin 1.6 mg/dl (0.2-1.3) H 05/10/23 04:21
AST > 7500 U/L (14-36) H* 05/10/23 04:21
ALT > 7500 U/L (0-35) H* 05/10/23 04:21
Alkaline Phosphatase 79 U/L (38-126) 05/10/23 04:21
Vital Signs and I&O:
Vital Signs
Temp Pulse Resp BP Pulse Ox
98.4 F 117 37 102/85 97
05/10/23 07:30 05/10/23 06:00 05/10/23 06:00 05/10/23 01:05 05/10/23 08:16
I&O
05/09/23 05/10/23 05/11/23
06:59 06:59 06:59
Intake Total 1899 4486.5 / 4486.5
Output Total 2185 / 2225 670 / 670
Balance -285 / -225 3816.5 / 3816.5
Physical Exam
Physical Exam
GI: Soft, Non Distended and Other (decreased bowel sounds)
Neuro: Other (intubated)
--- NOTE | 2023-05-10 08:49 | W.CON.NEPH ---
Consultation
-
Date/Time Consultation Requested: 05/10/2023 8 AM
Date/Time Consultation Performed: 05/10/2023 9 AM
Requesting Provider: Dr. Hanna
Performing Provider: Dr. Mora
Reason for Consultation: SKYE, hypotension
Medical History
-
Chief Complaint: SKYE
History of Present Illness:
Patient is a 77-year-old female with nonischemic cardiomyopathy, hypertension, chronic left bundle branch block, bronchiectasis with lung nodules who presented to the emergency department 05/07/2022 with complaints of nausea, vomiting, tachycardia and
hypotension.� Patient began feeling unwell the day prior to admission but then the symptoms got worse with associated with nausea and vomiting which prompting her family to call 911.� When paramedics arrived they found patient hypotensive, systolic
blood pressure of 65 and short of breath.� She was noted to have elevated heart rate. On arrival to emergency department patient was noted to be hypothermic and hypoxic. Labs show elevated white count of 16.1, sodium 123, abnormal LFTs AST/ALT
104/58.� Elevated troponin of 0.984.� proBNP was 138. ECG showed tachycardia with heart rates in the 120-140's bpm. She was negative for COVID. She then suffered PEA arrest but had return of spontaneous circulation. She was intubated and sent to
the ICU. She is currently sedated and in critically ill condition. She remains on 3 pressors with stable but hypotensive pressures. Her creatinine has begun to increase. She is in shock liver. Lactic acid remains elevated.
Past Medical History
Cardiomyopathy
Hypertension
Aortic regurgitation, mild
LBBB (left bundle branch block)
Bronchiectasis, follows with Dr. Guzman
Lung nodules
History of pneumonia
Skin cancer
History of polio no sequela
Low back pain due to degenerative disc disease and degenerative joint disease
History of Lyme's disease
Meningioma right frontal inner calvarial table
Popliteal vein aneurysm
Rheumatoid arthritis�
Scoliosis
Varicose vein stripping
Left breast lumpectomy
Total abdominal hysterectomy bilateral salpingo-oophorectomy
Sinus surgery
Social History
Tobacco: Former Smoker
Alcohol: Daily
Family History
Family History: Not Pertinent
Allergies / Home Medications
Allergy/AdvReac Type Severity Reaction Status Date / Time
WALDO Inhibitors Allergy Unknown Verified 05/08/23 16:08
iodine Allergy Hives Verified 05/08/23 16:08
Sulfa (Sulfonamide Allergy Unknown Verified 05/08/23 16:08
Antibiotics)
Medication Instructions Recorded Confirmed Type
albuterol sulfate 90 mcg/actuation 2 puff inhalation R Q6 PRN 05/08/23 05/08/23 History
aerosol inhaler sob/wheezing
cetirizine 10 mg tablet (Zyrtec) 10 mg PO HS 05/08/23 05/08/23 History
hydrochlorothiazide 50 mg tablet 50 mg PO DAILY 05/08/23 05/08/23 History
irbesartan 150 mg tablet 150 mg PO DAILY 05/08/23 05/08/23 History
multivitamin 1 tab PO DAILY 05/08/23 05/08/23 History
omeprazole 20 mg capsule,delayed 20 mg PO DAILY 05/08/23 05/08/23 History
release
potassium chloride 20 mEq 20 meq PO DAILY 05/08/23 05/08/23 History
tablet,extended release(part/cryst)
Review of Systems
-
Sedated
Unable to obtain full review of systems at this time due to: Patient Intubation
Physical Exam
Vital Signs
Vital Signs
Temp Pulse Resp BP Pulse Ox
98.4 F 117 37 102/85 97
05/10/23 07:30 05/10/23 06:00 05/10/23 06:00 05/10/23 01:05 05/10/23 08:16
Lab Results
WBC 24.6 10^3/uL (4.8-10.8) H 05/10/23 04:21
RBC 3.95 10^6/uL (4.20-5.40) L 05/10/23 04:21
Hgb 12.5 g/dL (12.0-16.0) 05/10/23 04:21
Hct 36.2 % (37.0-47.0) L 05/10/23 04:21
Plt Count 139 10^3/uL (130-400) D 05/10/23 04:21
Sodium 130 mmol/L (135-145) L 05/10/23 04:21
Potassium 4.6 mmol/L (3.5-5.1) 05/10/23 04:21
Chloride 95 mmol/L (98-107) L 05/10/23 04:21
Carbon Dioxide 20 mmol/L (22-30) L 05/10/23 04:21
BUN 43 mg/dl (7-17) H 05/10/23 04:21
Creatinine 1.5 mg/dL (0.6-1.0) H 05/10/23 04:21
eGFR 36.12 05/10/23 04:21
Glucose 239 mg/dl (70-99) H 05/10/23 04:21
Calcium 8.5 mg/dl (8.4-10.2) 05/10/23 04:21
Phosphorus 6.9 mg/dl (2.5-4.5) H 05/10/23 04:21
Lqg-L-Gpxycsuvzgr Pept 138 pg/ml 05/08/23 14:40
Albumin 3.1 g/dl (3.5-5.0) L 05/10/23 04:21
Physical Exam
General: Other (Intubated sedated)
HEENT: Oropharynx Clear/Moist, Trachea Midline and No Thyromegaly
Respiratory: Clear and Normal Excursion
Cardiac: Other (Irregular)
Abdomen: Soft, Nontender, Nondistended and No Hepatosplenomegaly
Musculoskeletal: No Edema
Skin: No Rash, No Cyanosis and Normal Turgor
Assessment/Plan
-
Assessment
VDRF
Hypotension
Sepsis
Atrial fibrillation rapid ventricular rate
SKYE
Hyponatremia
Lactic acidosis
Stercoral colitis
Shock liver
History of bronchiectasis
Rheumatoid arthritis
Plan
For amiodarone drip for atrial fibrillation uncontrolled rate
Add phenylephrine to allow epinephrine wean
Continue Levophed and vasopressin
Goal mean arterial blood pressure 65 or higher
Serial BMP
Continue IV fluids isotonic
Anticipate worsening of SKYE
May require CRRT
Follow lactate
Follow LFTs
Await blood cultures, broad-spectrum antibiotics this appears to be distributive shock
Critical care time spent 35 minutes
Data Reviewed
-
Radiology: Image Personally Visualized and interpreted (Chest x-ray on 05/10/2023 by my read shows no acute disease)
CT Scan: Report Reviewed by me (CT scan on 05/08/2023 with contrast shows atelectasis, hiatal hernia, stercoral colitis)
Medical Tests (Nuc Med, Echo etc): Image Personally Visualized and interpreted (EKG on 05/10/2023 by my reading shows atrial fibrillation rapid ventricular rate nonspecific interventricular conduction block anterior lateral Q)
Labs: Labs Reviewed by me
--- NOTE | 2023-05-10 08:50 | W.PN.INTV ---
Today's Communication / Plan
Recommendations
Continue vasopressors with goal MAP>65
Check Abd US
Mechanical ventilatory support
Replete K>4, Mg>2
Heart rate control
Trend blood gasses and lactate
Guarded prognosis
Limited DNR
Assessment
-
Assessment: 77-year-old female with a past medical history of NICM, bronchiectasis, history of pneumonia, history of skin cancer, rheumatoid arthritis and history of Lyme disease who presents with shortness of breath, vomiting and hypotension.
When EMS arrived patient was hypotensive with SBP 65. Also concern for ST elevation. Patient hypothermic to 90 �F in the ER, tachycardic to 107, tachypneic to 30 breaths/min, and hypotensive to 85/55mmHg. Patient required 6 L/min nasal cannula
with SpO2 95%. She appeared disheveled with dry mucous membranes. Initial sodium 123, glucose 219, troponin 0.94, WBC 16, COVID-19 negative. CXR showed increased reticulonodular markings (L >R) suspicious for pneumonia. CT A/P showed wall
thickening from the sigmoid colon through the splenic flexure into the left side of the transverse colon compatible with colitis. She was given IV fluids with NS 0.9%, in addition to Zosyn. A total of 4 L of IV fluids were given however she
remained labile with her blood pressure. Patient transferred to the ICU for closer monitoring and critical care services consulted for additional management/recommendations.
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
Impression:
#Septic shock - likely due to infectious colitis + pneumonia + UTI
#CAP
#Infectious colitis
#Complicated UTI
#Lactic acidosis due to above
#New onset A-fib (morning of 05/10/2023) now on amiodarone gtt (was in A-fib on admission then spontaneously converted to sinus tachycardia, and now she is back in A-fib)
#Acute respiratory failure with hypoxemia on mechanical ventilation
#Stercoral colitis
#Acute kidney injuey
#Shock liver
#Hyponatremia - likely due to reduced PO intake recently with nausea/vomiting
#In-Hospital Cardiac Arrest - due to acidosis with PEA arrest s/p intubation with loss of respiratory drive
#Acute respiratory failure with hypoxemia now on mechanical ventilation s/p cardiac arrest
#Hyperglycemia
#Elevated troponin - likely due to type II [place] in setting of septic shock
#LBBB
Plan:
- Broad spectrum Abx (farzad) and follow up infectious workup with blood, urine and sputum Cx
- IV vanco DC'd given MRSA swab is negative
- Check abd US to r/o cholecystitis and assess for hydro
- Continue mechanical intubation with daily SAT/SBT if clinically appropriate
- Lightly sedated with goal RASS -1 to -2; lower sedation to see if this helps BP; she was reaching for tube after ROSC; hence given her hypotension with pressor requirements, will hold off on therapeutic hypothermia and instead avoid fever
- Titrate FiO2 and PEEP to maintain SpO2 >90-94%
- Maintain plateau pressure <30
- Trend lactate level until <2mmol/L --> an additional 1 L was given during the code yesterday AM (this would be her 5th liter since admission)
- Continue heparin gtt and continue to trend cTnI until begins to downtrend
- Cardiology on board as well as ID - recs appreciated
- Maintain MAP>65 and wean off vasopressors as tolerated
- Maintain SpO2 >90-94%
- Replete K>4, Mg>2
- Give senna and colace to help improve her constipation seen on CT A/P
- stress ulcer ppx: PPI
- DVT ppx
- Guarded prognosis at this time --> considering she has persistent lactic acidosis, now almost near maxed on multiple vasopressors, and is starting to have worsening arrhythmia with cardiac pauses, there is impending cardiac arrest. Family
members are here at bedside. I discussed the above in laymens terms, and the /daughter have decided to make patient DNR. Will continue full medical treatment for now. Emotional support was provided.
Critical care statement: A total of 48 minutes of critical care time was provided for this patient today. This includes management of unstable vital signs, evaluation of the patient at bedside, reviewing the patient's pertinent medical records
including radiographs, microbiology, laboratory evaluations, and� discussion with primary team, consultants, pharmacy, nutrition, physical therapy, case management, charge nurse, critical care nursing, and respiratory therapy.
Data:
CXR 05-10-2023:
The endotracheal tube has been retracted with the tip now projecting 2 cm above the markus, in satisfactory position. The enteric tube remains in stable position.
Improved aeration of the bilateral lung bases. No large pleural effusion or pneumothorax.
CXR 05-09-2023: Improved aeration of the right lung base. Mild bibasilar atelectasis and stable slightly prominent interstitial lung markings.
CT Abd/Pelvis with IV contrast 05-08-2023:
IMPRESSION: Trace amount of pleural fluid in the right lower chest. Mild hazy groundglass opacity within both lower lungs, which could represent atelectasis and/or mild groundglass pneumonitis. Linear densities within the right lower lobe and right
middle lobe, which is likely dependent atelectasis.
Long segment of wall thickening extending from the sigmoid colon through the splenic flexure and into the left side of the transverse colon. This finding would be compatible with colitis. Infectious colitis would be the leading consideration. Main
differential considerations of ischemic colitis and inflammatory bowel disease. No evidence of free intraperitoneal air.
Periportal edema is present. There is a small amount of free fluid around the liver and spleen in both upper quadrants and also within the pelvis.
Enlarged right atrium and right ventricle with reflux of contrast to the IVC within the liver, suggesting elevated right heart pressure.
Not mentioned above, mild subcutaneous edema diffusely.
Large amount of stool distending the rectum, with mild perirectal edema, suggesting mild stercoral colitis.
TTE 05-09-2023:
Stat bedside study done pre and post intubation/code.� Study done on Levophed
�and epinephrine drips
�Preintubation left ventricle small with mild LVH and mildly reduced LV systolic
�function estimated 45-50% by Vazquez's method.� On Levophed.� Abnormal septal
�motion consistent with left bundle branch block without obvious regional wall
�motion abnormality.� Postcode EF visually estimated 55-60% on Levophed and
�epinephrine drips with apical septal hypokinesis.
�Right ventricle preintubation/code with overall preserved RV systolic function
�however postarrest appeared dilated and hypokinetic
�Right atrial dilatation
�Thickened mitral valve leaflets with systolic anterior motion of the mitral
�valve chordae with mild late systolic mitral regurgitation
�Trileaflet aortic valve without stenosis or regurgitation
�Structurally normal tricuspid valve with mild tricuspid regurgitation.
�Estimated pulmonary artery pressure post code estimated 38 mmHg assuming a
�right atrial pressure of 5 mmHg
�No pericardial effusion
�Compared to prior study dated 12/22/2022, there is mild apical hypokinesis with
�septal abnormality related to left bundle branch block with a EF estimated 45%.�
�Right ventricle was reported normal in size and function.� Mitral valve
�structurally normal with trace mitral regurgitation and no ALVAREZ.� Aortic valve
�sclerotic with mild AI.� Estimated pulmonary artery pressures previously 20-25
�mmHg.
Subjective Dataa
Subjective Data
Date of Service:
Date of Service: May 10, 2023
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
Subjective:
Patient seen this morning. Last night her ETT was dislodged and she had to be reintubated.
This morning the patient remains intubated on 450/32/40%/5 via AC/VC; VTe 455mL, f: 38 b/min and PIP [id number]. She is on vasopressors with Levophed at 24mcg/min, epinephrine at 10mcg/min, vaso at 0.03units/min, and judi at 60mcg/min. Sedated on
propofol at 25mcg/kg/min. Unable to wean down propofol as she becomes agitated and tachypneic. She went into H fibrillation this morning and amiodarone drip started. Labs worsening with creatinine rising, shock liver via LFTs, and troponin also
rising to 6.84 this morning.
Multiple family members at bedside. Multiple updates were given. Patient remains critically ill. Emotional support was provided.
Review of Systems
General: Unobtainable - Pat Unresp
Objective Data
Data Reviewed
Vital Signs / I&O / Oxygen:
Vital Signs
Temp Pulse Resp BP Pulse Ox
98.4 F 88 32 102/85 66
05/10/23 11:16 05/10/23 15:15 05/10/23 15:15 05/10/23 01:05 05/10/23 13:00
Intake and Output
05/09/23 05/10/23 05/11/23
06:59 06:59 06:59
Intake Total 1900 / 1999 4486.5 / 4658.8 2890.0 / 2890.0
Output Total 2185 / 2225 670 / 670 18 / 18
Balance -285 / -225 3816.5 / 3988.8 2872.0 / 2872.0
SaO2 [A/C] 96
SaO2 66
Nasal Cannula flow liters per 6
minute
Physical Exam
General: Sweats (negative)
HEENT: Normocephalic and Anicteric
Cardiovascular: Irregular Rhythm, Peripheral Edema (negative) and Other (Normal rate)
Respiratory: Rhonchi, Accessory Resp Muscle Use (Negative), ET Tube and Other (Mechanical breath sounds heard bilaterally)
GI: Soft, Non Distended and Non Tender
Neurology: Other (Sedated; pupils 3 mm and minimally reactive)
Skin: Warm, Dry and Cyanosis (Negative)
Labs/Micro/Reports
Lab Data
05/10/23 04:21
05/10/23 11:19
Laboratory Results
05/09/23 05/10/23 05/10/23
22:35 00:08 04:21
PT 25.8 H
INR 2.38
APTT 75.4 H 68.5 H
pH 7.29 L 7.26 L
pCO2 47 H 48 H
pO2 340 H 173 H
HCO3 22.6 21.5
O2 Delivery Level
05/10/23 05/10/23 05/10/23
06:13 10:33 11:00
PT Cancelled Cancelled
INR Cancelled Cancelled
APTT 65.4 H
pH
pCO2
pO2
HCO3
O2 Delivery Level
05/10/23
13:07
PT
INR
APTT
pH 7.20 L
pCO2 44 H
pO2 116 H
HCO3 17.2 L
O2 Delivery Level
Microbiology
05/09/23 13:26 Sputum Respiratory Culture - Preliminary
Usual Respiratory Gely
05/09/23 13:26 Sputum Gram Stain - Preliminary
05/09/23 13:26 Urine Urine Culture - Final
NO GROWTH
05/09/23 01:55 Nose MRSA Screen - Final
No Methicillin Resistant Staphylococcus aureus isolated.
05/08/23 16:47 Blood/Venous Blood Culture - Preliminary
No Growth in 24 hours- Final report to follow
05/08/23 16:46 Blood/Venous Blood Culture - Preliminary
No Growth in 24 hours- Final report to follow
05/08/23 20:12 Urine Legionella Urinary Antigen - Final
Negative for Legionella pneumophila Serogroup 1 antigen.
A negative result does not rule out the possiblity of
Legionella infection due to other serogroups or species of
Legionella. Clinical correlation is recommended.
05/08/23 20:12 Urine Streptococcus pneumoniae Antigen (M - Final
Negative for Streptococcus pneumoniae antigen.
A negative result does not exclude infection with
Streptococcus pneumoniae. Clinical correlation is
recommended.
05/08/23 15:08 Nasal Swab Influenza Types A & B (BLANCO) - Final
Negative for Influenza A & B, NAAT
Negative results must be combined with clinical observations
and patient history.
Nucleic Acid Amplification test (NAAT)performed on the
[employer] platform.
[2023-05-10] MEDS: CORDARONE 518 MG IV (08:51)
--- NOTE | 2023-05-10 09:06 | W.PN.HOSP.TC ---
Today's Communication/Plan
-
Discussed with that patient has heart failure, liver failure, kidney failure from severe septic shock.
Discussed recommending changing CODE STATUS to DNR, as her prognosis is poor and CPR would not help her.
He will think about it.
Assessment / Plan
Assessment / Plan
#PEA cardiac arrest 3/2
#Acute hypoxic respiratory failure
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
Status post CPR with ROSC, patient intubated
Continue phenylephrine drip, Levophed drip, vasopressin drip for MAP > 65
Continue IV Solu-Medrol
Discussed with that patient has heart failure, liver failure, kidney failure from sepsis.
Discussed recommending changing CODE STATUS to DNR, as her prognosis is poor and CPR would not help her.
He will think about it.
#Septic shock with distributive shock
#Acute urinary tract infection
#Persistent lactic acidosis
Likely sources include UTI, aspiration pneumonia and translocation of bacteria from ischemic colitis
MRSA neg, vanc dc
Continue Merrem, ID consulted
Follow-up on blood cultures, trend lactic acid
#Ischemic colitis
#Constipation with stercoral colitis
Patient presented with abdominal pain and vomiting, no diarrhea
Continue PPI IV twice daily
Seen by GI and general surgery, both teams have signed off
#Non-ST elevation myocardial infarction
#Type II myocardial infarction from demand ischemia
In the setting of ischemic colitis, septic shock
Appreciate cardiology input, Twelve-lead EKG does not support Sgarbossa criteria for STEMI supported by clinical history and echo findings
#New onset rapid atrial fibrillation
Heparin drip, amiodarone drip, management as per cardiology
#Shock liver
From septic shock, monitor
#Acute kidney injury
From septic shock, nephrology consulted
Creatinine 1.9 today, was normal upon admission
Expect creatinine to worsen, may require CCRT
#Hypovolemic hyponatremia
Monitor
DVT prophylaxis�heparin drip
GI prophylaxis�IV PPI BID
Full code
Poor prognosis
Discussed with cardiology, paint roller assembler at length 05/08, 05/09
Updated 05/09
Physical Exam
General: Intubated and sedated
HEENT: Normocephalic, Atraumatic
Respiratory: Coarse breath sounds with occasional rhonchi
Coarse breath sounds with occasional rhonchi
Cardiac: Normal S1/S2, Regular Rate and Rhythm, +murmur
GI: Soft, Nontender, Nondistended, Normal Bowel Sounds
Anticipated Discharge: > 48 hours
Subjective/Interval History
-
Date of Service: May 10, 2023
Patient intubated. Overnight events noted.
Objective Data
-
Labs:
Laboratory Results
05/09/23 05/10/23 05/10/23
22:35 00:08 04:21
WBC 24.6 H
Hgb 12.5
Hct 36.2 L
Plt Count 139 D
PT 25.8 H
INR 2.38
APTT 75.4 H 68.5 H
HCO3 22.6 21.5
Sodium 130 L
Potassium 4.6
Chloride 95 L
Carbon Dioxide 20 L
BUN 43 H
Creatinine 1.5 H
Glucose 239 H
Calcium 8.5
Total Bilirubin 1.6 H
AST > 7500 H*
ALT > 7500 H*
Alkaline Phosphatase 79
05/10/23 05/10/23
06:13 11:00
WBC
Hgb
Hct
Plt Count
PT Cancelled Cancelled
INR Cancelled Cancelled
APTT Pending
HCO3
Sodium Pending
Potassium Pending
Chloride Pending
Carbon Dioxide Pending
BUN Pending
Creatinine Pending
Glucose Pending
Calcium Pending
Total Bilirubin
AST
ALT
Alkaline Phosphatase
Vital Signs:
Vital Signs
Temp Pulse Resp BP Pulse Ox
98.4 F 117 37 102/85 97
05/10/23 07:30 05/10/23 06:00 05/10/23 06:00 05/10/23 01:05 05/10/23 08:16
I&O
05/09/23 05/10/23 05/11/23
06:59 06:59 06:59
Intake Total 1899 / 1999 4486.5 / 4658.8 516.9 / 516.9
Output Total 2185 / 2225 670 / 670
Balance -285 / -225 3816.5 / 3988.8 498.9 / 498.9
--- NOTE | 2023-05-10 09:22 | W.PN.GS2 ---
Addendum entered and electronically signed by Rom Aguilera MD 05/10/23 11:36:
I saw and examined the patient independently.
The Engineering Geologist's note was reviewed and I agree with the note, assessment and plan except where noted below.
Comment: 77-year-old female with history of cardiomyopathy, hypertension, total abdominal hysterectomy/BSO presented with shortness of breath, hypotension/tachycardia with nausea, vomiting, leukocytosis, acidosis, Elevated lactate to 4.3, mild
increase in liver enzymes and a troponin of 0.9. Mild colitis identified on CT along the splenic flexure and down the left colon but no pneumatosis coli, portal venous gas and all her vessels including her marginal appear patent and filled with
contrast. Suspect colitis is ischemic from low flow secondary to hypotension which was present on admission. She then subsequently developed an AZ now on 3 pressors with, shock liver, SKYE concerning for multiorgan system failure.
Continue supportive care, would establish goals of care with family.
No surgical intervention warranted at this time.
General surgery will sign off for now, please call with questions or concerns.
Original Note:
Today's Communication / Plan
-
Continue NGT
Assessment / Plan
-
77 yo female with h/o NICM, HTN, SRAVANTHI/BSO who presented with hypotension/tachycardia with nausea and vomiting. +AZ this admission, cardiology following. Code 9 on 05/08. Remains clinically unstable, VDRF, on pressors.
Labs with rising leukocytosis. LFT's rising, Cr rising. Multiorgan failure. Concern for ischemic colitis on CT
Underlying cause of shock likely cardiopulmonary. No urgent surgical intervention planned/warranted.
Continue supportive care
Continue NGT to LIWS
Medical care as per primary team
Subjective Data
-
Date of Service: May 10, 2023
Patient seen and examined at bedside with Dr. Aguilera. Sedated/vented/critically ill.
Objective Data
-
Intake and Output
05/09/23 05/10/23 05/11/23
06:59 06:59 06:59
Intake Total 1899 4486.5 / 4658.8 516.9 / 516.9
Output Total 2185 / 2225 670 / 670
Balance -285 / -225 3816.5 / 3988.8 498.9 / 498.9
Intake:
IV fluids (Total) 1800 / 1899 4226.5 / 4398.8 516.9 / 516.9
Diprivan gtt 269.3 / 281.8 37.5 / 37.5
Epi gtt 563.2 / 582.0 56.4 / 56.4
Heparin gtt 236 / 248 36 / 36
Levophed gtt 900.0 / 945.0 135 / 135
NSS 1000 / 1000 250 / 250
Nss 1,000 ml @ 100 mls/hr IV . 800 / 900 400 / 400
Q10H AMI Rx#:[id number]
Sterile Water For Injection 1500 / 1575 225 / 225
1000 ml 1,000 ml @ 75 mls/hr IV
.[id number] AMI with Sodium
Bicarbonate 150 Meq Rx#:
[id number]
Vasopressin 108 / 117 /
IV piggybacks 100 / 100 200 / 200
Amount instilled into GI Tube ( 60 / 60
Total)
Rice Sump 60 / 60
Output:
Gastrointestinal tube output ( 300 / 300
Total)
Rice Sump 300 / 300
Urine, Martinez 785 / 825 370 / 370
Urine, Voided 700 / 700
Straight cath output 700 / 700
Vital Signs
Temp Pulse Resp BP Pulse Ox
98.4 F 117 37 102/85 97
05/10/23 07:30 05/10/23 06:00 05/10/23 06:00 05/10/23 01:05 05/10/23 08:16
Lab Results
05/10/23 04:21
Calcium 8.5 mg/dl (8.4-10.2) 05/10/23 04:21
Phosphorus 6.9 mg/dl (2.5-4.5) H 05/10/23 04:21
Magnesium 2.4 mg/dl (1.6-2.3) H 05/10/23 04:21
Total Bilirubin 1.6 mg/dl (0.2-1.3) H 05/10/23 04:21
AST > 7500 U/L (14-36) H* 05/10/23 04:21
ALT > 7500 U/L (0-35) H* 05/10/23 04:21
Alkaline Phosphatase 79 U/L (38-126) 05/10/23 04:21
Total Protein 5.2 g/dl (6.3-8.2) L 05/10/23 04:21
Albumin 3.1 g/dl (3.5-5.0) L 05/10/23 04:21
Physical Exam
-
NAD
VDRF/Sedated
ABD softly distended, obese. NGT with bilious outputs
[2023-05-10] MEDS: NEO-SYNEPHRINE 1% 260 MG IV (09:45)
--- NOTE | 2023-05-10 10:48 | W.PN.ID1 ---
Date of Service
Date of Service: May 10, 2023
Today's Communication
Continue meropenem.
See below.
Assessment / Plan
# SIRS/ shock with multi-system organ failure
-PEA arrest post intubation (05/09/23)
- on multiple pressors
- SKYE worse
- Shock liver AST, ALT >7000
-Leukocytosis, on steroid
# Probable aspiration from emesis
# Suspect ischemic colitis over infectious colitis (no diarrhea)
# New afib with RVR
# Non-STEMI
Plan:
- blood cx's neg to date.
- sputum cx pending
-MRSA screen negative. DC Vancomycin.
- Renally adjust meropenem dose to 500mg IV q8h.
- Prognosis guarded
Chief Complaint
-: Other (Shock)
Subjective / Review of Systems
Remains intubated.
Vital Signs / Physical Exam
Vital Signs
Vital Signs
Temp Pulse Resp BP Pulse Ox
98.4 F 117 37 102/85 97
05/10/23 07:30 05/10/23 06:00 05/10/23 06:00 05/10/23 01:05 05/10/23 08:16
Physical Exam
Constitutional: Acutely Ill
Cardiovascular: S1/S2 and Other (tachycardic)
Pulmonary: Clear (anteriorly)
Gastrointestinal: Soft, Non Tender and Decreased Bowel Sounds (none)
Genito-Urinary: Martinez and Clear Urine (dark urine)
Extremities: Edema
Objective Data
Lab Data
Lab Results
05/10/23 04:21
PT Cancelled 05/10/23 11:00
INR Cancelled 05/10/23 11:00
APTT 68.5 Sec (23.4-35.0) H 05/10/23 04:21
Estimated Creat Clear 34 ml/min 05/10/23 04:21
Lactic Acid 5.2 mmol/L (0.7-2.0) H* 05/10/23 04:21
Total Bilirubin 1.6 mg/dl (0.2-1.3) H 05/10/23 04:21
AST > 7500 U/L (14-36) H* 05/10/23 04:21
ALT > 7500 U/L (0-35) H* 05/10/23 04:21
Alkaline Phosphatase 79 U/L (38-126) 05/10/23 04:21
Most recent labs reviewed.
Micro Results:
05/09/23 01:55 MRSA Screen - Final
Nose No Methicillin Resistant Staphylococcus aureus isolated.
05/08/23 16:47 Blood Culture - Preliminary
Blood/Venous No Growth in 24 hours- Final report to follow
05/08/23 16:46 Blood Culture - Preliminary
Blood/Venous No Growth in 24 hours- Final report to follow
05/09/23 13:26 Respiratory Culture - Pending
Sputum Gram Stain - Preliminary
05/09/23 13:26 Urine Culture - Pending
Urine
05/08/23 20:12 Legionella Urinary Antigen - Final
Urine Negative for Legionella pneumophila Serogroup 1 antigen.
A negative result does not rule out the possiblity of
Legionella infection due to other serogroups or species of
Legionella. Clinical correlation is recommended.
Streptococcus pneumoniae Antigen (M - Final
Negative for Streptococcus pneumoniae antigen.
A negative result does not exclude infection with
Streptococcus pneumoniae. Clinical correlation is
recommended.
05/08/23 15:08 Influenza Types A & B (BLANCO) - Final
Nasal Swab Negative for Influenza A & B, NAAT
Negative results must be combined with clinical observations
and patient history.
Nucleic Acid Amplification test (NAAT)performed on the
[employer] platform.
05/09/23 CXR: Improved aeration of the right lung base. Mild bibasilar atelectasis and stable slightly prominent interstitial lung markings.
05/09/23 CXR: Increased right basilar opacity suggesting pneumonia versus atelectasis.
05/08/23 CT A/P with IV contrast: Trace amount of pleural fluid in the right lower chest. Mild hazy groundglass opacity within both lower lungs, which could represent atelectasis and/or mild groundglass pneumonitis. Linear densities within the right
lower lobe and right middle lobe, which is likely dependent atelectasis.Long segment of wall thickening extending from the sigmoid colon through the splenic flexure and into the left side of the transverse colon. This finding would be compatible
with colitis. No evidence of free intraperitoneal air.
05/08/23 CXR: Increased reticulonodular markings within both lungs, left slightly greater than right
[2023-05-10 10:54] LABS: APTT 65.4 Sec (23.4-35.0)
[2023-05-10 11:13] LABS: Lactic Acid 5.6 mmol/L (0.7-2.0)
[2023-05-10 12:01] LABS: Blood Urea Nitrogen 45 mg/dl (7-17); Calcium 7.6 mg/dl (8.4-10.2); Carbon Dioxide 19 mmol/L (22-30); Chloride 95 mmol/L (98-107); Estimated Creatinine Clearance 28 ml/min; Glucose 217 mg/dl (70-99); Sodium 126 mmol/L (135-145)
[2023-05-10] MEDS: NOVOLOG FLEXPEN-MODERATE RESISTANCE SC ×2 (12:14→17:39)
--- NOTE | 2023-05-10 12:30 | PTCARENOTE ---
PICC line placed by VAT...confirmed w/ CXR. notified nursing that she updated pt's about pt's poor prognosis. Emotional support provided to at bedside.
No major changes in physical assessment of pt since am. Remains intubated and sedated. Will continue to monitor closely.
[2023-05-10 13:23] LABS: B.E. -10.4 mmol/L; HCO3 17.2 mmol/L (21-28); O2 Saturation % 99.4 % (94-98); PCO2 44 mmHg (32-35); PO2 116 mmHg (83-108)
--- NOTE | 2023-05-10 13:45 | PTCARENOTE ---
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 See cardiac strips. No CPR required. Na+HCO3 given IVP per MD's at bedside. IVF's increased to 125ml/hr. Will continue to monitor closely.
[2023-05-10] MEDS: NSS 1000 IV (14:25)
--- NOTE | 2023-05-10 14:42 | W.PN.UPDATE ---
Update Note
Progress Note Update
Patient having significant cardiac pauses that seem to respond to bicarbonate pushes. Patient has received an exorbitant amount of bicarbonate pushes (4 amps thus far) and bicarbonate infusion increased to 125cc/hr, and SBP still in the low 80s.
After the first amp of bicarbonate, her SBP did improve from the low 80s to the mid 90s, but that was short-lived. Patient never lost a pulse but they cause was about 3-4 seconds. , Abraham, present at bedside the entire time and I explained
to him the futility of CPR given her multiorgan dysfunction and now with cardiac pauses.
Multiple for members at bedside and I explained the current critically ill state that Leatha is in. Decision made to continue full medical treatment but due to limited DNR and continue mechanical ventilation.
Primary hospitalist made aware. Emotional support provided. Will continue to closely monitor the patient and if pt continues to clinically deteriorate the family is considering withdrawal of care.
--- NOTE | 2023-05-10 15:00 | PTCARENOTE ---
had a full bedside conversation w/ pt's family and discussed plan of care. Will continue to current plan of care but pt's family does not want CPR or defibrillation. Order rec'd.
--- NOTE | 2023-05-10 16:00 | PTCARENOTE ---
Pt remains intubated and sedated on multiple gtts. Family at bedside. Pastoral care available for emotional support after bradycardic event. Pupils 3/nonreactive....diprivan gtt decreased to evaluate any neuro changes. No major changes in
physical assessment. Will continue to monitor.
--- NOTE | 2023-05-10 16:37 | CHAP ---
Received a call requesting a senior biostatistician/group leader for Leatha. I called the [facility] senior biostatistician/group leader line, and went to the family, providing emotional and spiritual support. We prayed together, offering prayers and readings from the [facility], and asking blessings of
peace for all. We commended Leatha to God, thanking Him for her life and love, and made the sign of the Cross on her forehead. Comforted the family, and assured them we are here for them.
[2023-05-10 17:21] LABS: B.E. -6.1 mmol/L; HCO3 20.7 mmol/L (21-28); O2 Saturation % 98.9 % (94-98); PCO2 45 mmHg (32-35); PO2 111 mmHg (83-108); pH 7.27 (7.35-7.45)
[2023-05-10 17:37] LABS: Lactic Acid 9.1 mmol/L (0.7-2.0)
[2023-05-10 17:38] LABS: Glucose 141 mg/dl (70-99)
[2023-05-10 17:52] LABS: APTT 106.6 Sec (23.4-35.0)
--- NOTE | 2023-05-10 19:00 | PTCARENOTE ---
Yellow colored rings x 2 sent home w/ .
[2023-05-10] MEDS: SENNA SYRUP 8.80000000000000071 MG PO (20:00)
--- NOTE | 2023-05-10 20:00 | PTCARENOTE ---
patient received in bed, intubated and sedated on Propofol. Pupils 3mm sluggish and reactive, + cough. Sinus tachycardia on monitor, afebrile, blood pressure as documented. Weak but palpable pulses throughout, + sclera and orbital edema. #8 ETT at
21 cm at the left lip, vent settings of A/C 32 TV 450 FIO2 40% Peep5, pulse ox unobtainable due to cool extremities. Lungs coarse. [place] sumo in left nare to LIWS draining brown. Abdomen soft with hypoactive bowel sounds. Martinez catheter draining
scant amount of tea colored urine. left radial Barbara transduced and zeroed, all PIVs flushed and patent. RTL PICC with IVF, Propofol, Heparin, Levophed, epinephrine, vasopressin and Titus-Synephrine infusing per worklist. Family at bedside.
--- NOTE | 2023-05-10 20:31 | W.PN.CARDCBS ---
Today's Communication / Plan
-
Continue aggressive hemodynamic support
Trend cardiac troponin to peak
Continue IV heparin and aspirin
Amiodarone drip started this morning for atrial fibrillation with conversion to sinus rhythm; monitor telemetry
Guarded prognosis
Impression / Plan
-
PCP: Willy Bragg
Manager Environmental Affairs: Dr. Ravinder Flores
Impression:
-Presents 05/07/2022 nausea/vomiting, abd pain with elevated lactate [initial lactate 4.3, WBC 16, procalcitonin 5.07] who was hypothermic and SOB with hypoxia.
-CT abdomen pelvis with transverse to sigmoid colitis, infectious versus ischemic: ' Infectious colitis would be the leading consideration. Ischemia could be considered, and there is moderate atherosclerotic disease. However, the degree of narrowing
of the origin of the SMA is less than is usually seen in association with ischemic bowel disease. The MARGARITO is also patent. There are separate origins of the splenic and hepatic arteries. No small bowel obstruction.'
-Right-sided pneumonitis versus pneumonia, possible aspiration
-COVID/influenza negative
-Worsening respiratory distress/hypoxia with lactic acidosis/metabolic acidosis 05/09/2023 status post intubation
-PEA arrest 05/09/2023 following intubation, patient became bradycardic and lost pulse. ROSC post CPR, 2 mg epinephrine and 2 A of bicarb as well as 1 g of calcium.
-Sinus tachycardia with known left bundle branch block; possible brief atrial fibrillation
- Non-STEMI, demand type with abnormal troponin, initially 0.984--> peak 6.8 on 05/10/2023. Initial proBNP 138. Twelve-lead EKGs do not meet Sgarbossa criteria for STEMI supported by clinical history and echo findings; reviewed with interventional
cardiology
-Marked hyponatremia on admission, 123
Cardiomyopathy
Hypertension
Aortic regurgitation, mild
LBBB (left bundle branch block)
Bronchiectasis, follows with Dr. Guzman
Lung nodules
History of pneumonia
Skin cancer
History of polio no sequela
Low back pain due to degenerative disc disease and degenerative joint disease
History of Lyme's disease
Meningioma right frontal inner calvarial table
Popliteal vein aneurysm
Rheumatoid arthritis�
Scoliosis
Varicose vein stripping
Left breast lumpectomy
Total abdominal hysterectomy bilateral salpingo-oophorectomy
Sinus surgery
Echo December 2022: EF 45% with apical hypokinesis, LVH and mild AR.
Lexiscan MIBI January 2023: normal myocardial perfusion with preserved ejection fraction
Plan:
Critically ill with distributive shock on multiple pressors with multisystem organ dysfunction/lactic acidosis status post PEA arrest following intubation 05/09/2023
-Continue pressure support with goal MAP greater than 65
-On broad-spectrum antibiotics per ID
-Cultures so far negative
-Case discussed with GI, surgery, athletic gear custodian, and nephrology
Non-STEMI secondary to demand in the setting of critical illness
-Bedside echocardiogram done just prior to intubation/code and immediately following code 05/09/23: Precode LV ejection fraction estimated 45-50% with paradoxical septal motion consistent with known left bundle branch block, mild mitral regurgitation
and no pericardial effusion.� No obvious regional wall motion abnormality.� Postcode, LV ejection fraction more vigorous on pressors with apical septal hypokinesis and septal abnormality related to left bundle branch block.� Mitral regurgitation
with ALVAREZ appears mild and late systolic.� RV appears dilated and hypokinetic.� No pericardial effusion.
-Continue to trend cardiac troponins to peak, 6.84 this morning
-Support hemodynamics as able
-Aspirin 81 mg daily and continue heparin drip
Rapid atrial fibrillation this morning with conversion to sinus rhythm on IV amiodarone drip
-Later today had significant pauses without loss of pulse and responded to bicarbonate pushes
-Amiodarone drip discontinued
-Monitor rhythm closely
-Continue IV heparin
Critically ill with guarded prognosis
Updated patient's multiple times throughout the day; discussed CODE STATUS
Family has opted for limited DNR
Discussed case/care with multiple consultants including athletic gear custodian, hospitalist, security dispatcher, corporate ethics officer, and general surgery
Progress Note - Manager Environmental Affairs
Subjective
Date of Service: May 10, 2023
Patient seen and examined throughout the day. Overnight, ET tube dislodged and she was reintubated. Now on multiple vasopressors including Levophed, epinephrine, vasopressin and Titus-Synephrine. Started on IV amiodarone this morning for rapid
atrial fibrillation with conversion to sinus rhythm. Labs this morning with rising creatinine with poor urine output and markedly elevated LFTs consistent with shock liver.
Objective
Labs:
05/10/23 04:21
05/10/23 17:11
Labs
Hgb 12.5 g/dL (12.0-16.0) 05/10/23 04:21
Hct 36.2 % (37.0-47.0) L 05/10/23 04:21
Plt Count 139 10^3/uL (130-400) D 05/10/23 04:21
PT Cancelled 05/10/23 11:00
INR Cancelled 05/10/23 11:00
APTT 106.6 Sec (23.4-35.0) H 05/10/23 17:11
Sodium 126 mmol/L (135-145) L 05/10/23 11:19
Potassium 5.0 mmol/L (3.5-5.1) 05/10/23 11:19
BUN 45 mg/dl (7-17) H 05/10/23 11:19
Creatinine 1.9 mg/dL (0.6-1.0) H 05/10/23 11:19
Glucose 141 mg/dl (70-99) H 05/10/23 17:11
Troponins
05/08/23 05/08/23 05/09/23
14:40 19:34 01:55
Troponin I 0.984 H* 2.270 H* D 2.390 H*
05/09/23 05/09/23 05/09/23
03:51 07:36 08:26
Troponin I Cancelled Cancelled Cancelled
05/09/23 05/09/23 05/09/23
08:47 09:45 15:43
Troponin I 3.870 H* D 4.380 H* Cancelled
05/09/23 05/09/23 05/10/23
17:00 22:35 04:21
Troponin I 4.930 H* 6.400 H* D 6.840 H*
05/10/23 05/10/23
10:33 11:19
Troponin I Cancelled 6.770 H*
Vital Signs and I&O:
Vital Signs
Temp Pulse Resp BP Pulse Ox
98.4 F 107 29 102/85 54
05/10/23 16:00 05/10/23 20:15 05/10/23 20:15 05/10/23 01:05 05/10/23 17:45
Vital Signs
Temp Pulse Resp BP Pulse Ox
98.4 F 107 29 102/85 54
05/10/23 16:00 05/10/23 20:15 05/10/23 20:15 05/10/23 01:05 05/10/23 17:45
Intake & Output
05/08/23 05/09/23 05/10/23 05/11/23
06:59 06:59 06:59 06:59
Intake Total 1899 4486.5 / 4658.8 3911.7 / 3911.7
Output Total 2185 / 2225 670 / 670 36 / 36
Balance -285 / -225 3816.5 / 3988.8 3875.7 / 3875.7
Physical Exam
Physical Exam
General: Intubated and sedated
Heart: Regular, tachycardic. No murmurs or rubs
Lungs: Bronchovesicular breath sounds with rhonchi
Abd: Soft, mildly distended.
Ext: No edema. Positive varicose veins
[2023-05-10] MEDS: ZYRTEC PO (21:46)
[2023-05-10 23:21] LABS: APTT 104.3 Sec (23.4-35.0)
--- NOTE | 2023-05-11 00:07 | PTCARENOTE ---
patient reassessed, no changes in assessment. turned and repositioned
[2023-05-11] MEDS: DEXTROSE 50% SYRINGE 12.5 GRAMS IV (00:37)
[2023-05-11] MEDS: NOVOLOG FLEXPEN-MODERATE RESISTANCE SC ×2 (00:38→06:30)
[2023-05-11 00:46] LABS: Glucose - Point of Care 59 mg/dl (70-99)
[2023-05-11 01:07] LABS: Glucose - Point of Care 137 mg/dl (70-99)
[2023-05-11] MEDS: STERILE WATER FOR INJECTION 10 ML IV (01:17)
[2023-05-11] MEDS: MERREM 500 MG IV (01:17)
[2023-05-11] MEDS: SUBLIMAZE 50 MCG IV ×2 (01:18→04:33)
--- NOTE | 2023-05-11 01:24 | PTCARENOTE ---
patient tachypneic, prn fentanyl bolus given with good effect
[2023-05-11] MEDS: LEVOPHED 258 MG IV ×2 (02:18→06:00)
[2023-05-11] MEDS: NEO-SYNEPHRINE 1% 260 MG IV (02:19)
--- NOTE | 2023-05-11 02:23 | PTCARENOTE ---
CHG bath given, Propofol increased for vent dyschrony. Patient will have bursts of rapid Afib then goes back to NSR, no changes in vasopressor requirements.
[2023-05-11 04:39] LABS: B.E. -12.2 mmol/L; O2 Saturation % 99.9 % (94-98); PCO2 37 mmHg (32-35); PO2 145 mmHg (83-108); pH 7.21 (7.35-7.45)
--- NOTE | 2023-05-11 04:41 | PTCARENOTE ---
patient reassessed, heart rate stable in the 90s, respiratory rate in the 40s, prn fentanyl bolus given with good effect, unable to get an accurate pulse ox, ETT repositioned, labs sent. no other changes in assessment
[2023-05-11 04:45] LABS: O2 Therapy 40%
[2023-05-11 04:46] LABS: HCO3 14.8 mmol/L (21-28)
[2023-05-11 04:55] LABS: APTT 112.8 Sec (23.4-35.0)
[2023-05-11 05:00] LABS: % Basophils 0.5 % (0-2); % Eosinophils 10.7 % (0-6); % Immature Granulocytes 4.5 % (0-0.5); % Lymphocytes 4.1 % (20.5-51.1); % Monocytes 7.5 % (1.7-9.3); % Neutrophils 72.7 % (42.2-75.2); Absolute Basophils 0.1 10^3/uL (0-0.2); Absolute Eosinophils 2.6 10^3/uL (0-0.7); Absolute Immature Granulocytes 1.1 10^3/uL (0-0.05); Absolute Monocytes 1.9 10^3/uL (0.1-0.6); Hematocrit 34.5 % (37.0-47.0); Hemoglobin 11.7 g/dL (12.0-16.0); Mean Corp Hgb Conc. 33.9 g/dL (33.0-37.0); Mean Corpuscular Hgb 31.5 pg (27.0-31.0); Mean Corpuscular Volume 92.7 fL (81.0-99.0); Nucleated Red Blood Cells % 1.3 %; Red Blood Cell Count 3.72 10^6/uL (4.20-5.40); Red Cell Dist. Width 13.4 % (11.5-14.5); White Blood Cell Count 24.8 10^3/uL (4.8-10.8)
[2023-05-11 05:29] LABS: Lactic Acid 15.6 mmol/L (0.7-2.0)
[2023-05-11] MEDS: DIPRIVAN 100 IV (05:43)
[2023-05-11] MEDS: SOLU-MEDROL PF 60 MG IV (05:43)
--- NOTE | 2023-05-11 05:58 | PTCARENOTE ---
ABG noted, order received, Titus-Synephrine gtt increased
[2023-05-11 06:00] VITALS: BMI 35.9
[2023-05-11] MEDS: SODIUM BICARBONATE 50 MEQ IV ×2 (06:00→06:20)
[2023-05-11] MEDS: ADRENALIN 258 MG IV (06:00)
[2023-05-11] MEDS: PITRESSIN 100 IV (06:06)
--- NOTE | 2023-05-11 06:12 | PTCARENOTE ---
Patients SBP 60s, Neo_snyephrine gtt maxed. Optical Engineer CAUSTIC PREPARER notified , additional amp Bicarb ordered and given
--- NOTE | 2023-05-11 07:09 | W.PN.INTV ---
Today's Communication / Plan
Recommendations
Overall prognosis exceedingly poor, MOD/post code and maintained on max dose pressors (3) with continued decline
Continue broad spectrum abx and full medical treatment, she is DNR
Family at bedside, continue further discussions
Assessment
-
77-year-old female with a past medical history of NICM, bronchiectasis, history of pneumonia, history of skin cancer, rheumatoid arthritis and history of Lyme disease who presents with shortness of breath, vomiting and hypotension. When EMS arrived
patient was hypotensive with SBP 65. Also concern for ST elevation. Patient hypothermic to 90 �F in the ER, tachycardic to 107, tachypneic to 30 breaths/min, and hypotensive to 85/55mmHg. Patient required 6 L/min nasal cannula with SpO2 95%. She
appeared disheveled with dry mucous membranes. Initial sodium 123, glucose 219, troponin 0.94, WBC 16, COVID-19 negative. CXR showed increased reticulonodular markings (L >R) suspicious for pneumonia. CT A/P showed wall thickening from the
sigmoid colon through the splenic flexure into the left side of the transverse colon compatible with colitis. She was given IV fluids with NS 0.9%, in addition to Zosyn. A total of 4 L of IV fluids were given however she remained labile with her
blood pressure. Patient transferred to the ICU for refractory septic shock requiring pressors and critical care services consulted for additional management/recommendations.
Impression:
#Septic shock - likely due to infectious colitis + pneumonia + UTI
#CAP
#Infectious colitis
#Complicated UTI
#Lactic acidosis due to above
#New onset A-fib (morning of 05/10/2023) now on amiodarone gtt (was in A-fib on admission then spontaneously converted to sinus tachycardia, and now she is back in A-fib)
#Acute respiratory failure with hypoxemia on mechanical ventilation
#Stercoral colitis
#Acute kidney injury
#Shock liver
#Hyponatremia - likely due to reduced PO intake recently with nausea/vomiting
#In-Hospital Cardiac Arrest - due to acidosis with PEA arrest s/p intubation with loss of respiratory drive
#Acute respiratory failure with hypoxemia now on mechanical ventilation s/p cardiac arrest
#Hyperglycemia
#Elevated troponin - likely due to type II CA in setting of septic shock
Chronic medical conditions INTERIOR DESIGN ASSISTANT:
NICM
hypertension
LBBB
bronchiectasis
lung nodules
chronic lower back pain
history of Lyme disease
history of right frontal meningioma
history of RA
aortic regurgitation
Plan:
Patient has required intubation and MV, due to end organ damage from ischemic colitis, UTI and septic shock
She has MOD including respiratory, cardiac, renal and suspected neurologic failure post cardiac arrest
She is on 3 pressors/max doses and still clinically deteriorating
Continue mechanical intubation with daily SAT/SBT if clinically appropriate
Titrate FiO2 and PEEP to maintain SpO2 >90-94%
Maintain plateau pressure <30
Septic shock
Trend lactate level until <2mmol/L --> an additional 1 L was given during the code yesterday AM (this would be her 5th liter since admission)
Broad spectrum Abx (farzad) and follow up infectious workup with blood, urine and sputum Cx
IV vanco DC'd given MRSA swab is negative
Check abd US to r/o cholecystitis and assess for hydro
Lightly sedated with goal RASS -1 to -2; lower sedation to see if this helps BP; she was reaching for tube after ROSC; hence given her hypotension with pressor requirements, will hold off on therapeutic hypothermia and instead avoid fever
s/p cardiac arrest with poor neurologic outcome suspected
Continue heparin gtt and continue to trend cTnI until begins to downtrend
Cardiology on board as well as ID - recs appreciated
Maintain MAP>65 and wean off vasopressors as tolerated
Replete K>4, Mg>2
CT reviewed, colitis suspected
UA initially with positive findings, cultures negative to date
Give senna and colace to help improve her constipation seen on CT A/P
Stress ulcer ppx: PPI
DVT ppx
Family Discussions
Ivette 05/11/23- updated family at bedside with Dr Moraes present, prognosis exceedingly poor due to multiple end organ failure. seemed reluctant to accept this outcome, rest of family appears understanding.
Dudley - Guarded prognosis at this time --> considering she has persistent lactic acidosis, now almost near maxed on multiple vasopressors, and is starting to have worsening arrhythmia with cardiac pauses, there is impending cardiac arrest.
Family members are here at bedside. I discussed the above in laymens terms, and the /daughter have decided to make patient DNR. Will continue full medical treatment for now. Emotional support was provided.
Diagnostic Data
CXR 05-10-2023: The endotracheal tube has been retracted with the tip now projecting 2 cm above the markus, in satisfactory position. The enteric tube remains in stable position.
Improved aeration of the bilateral lung bases. No large pleural effusion or pneumothorax.
CXR 05-09-2023: Improved aeration of the right lung base. Mild bibasilar atelectasis and stable slightly prominent interstitial lung markings.
CT Abd/Pelvis with IV contrast 05-08-2023:
IMPRESSION: Trace amount of pleural fluid in the right lower chest. Mild hazy groundglass opacity within both lower lungs, which could represent atelectasis and/or mild groundglass pneumonitis. Linear densities within the right lower lobe and right
middle lobe, which is likely dependent atelectasis. Long segment of wall thickening extending from the sigmoid colon through the splenic flexure and into the left side of the transverse colon. This finding would be compatible with colitis.
Infectious colitis would be the leading consideration. Main differential considerations of ischemic colitis and inflammatory bowel disease. No evidence of free intraperitoneal air. Periportal edema is present. There is a small amount of free fluid
around the liver and spleen in both upper quadrants and also within the pelvis.
Enlarged right atrium and right ventricle with reflux of contrast to the IVC within the liver, suggesting elevated right heart pressure. Not mentioned above, mild subcutaneous edema diffusely. Large amount of stool distending the rectum, with mild
perirectal edema, suggesting mild stercoral colitis.
TTE 05-09-2023: left ventricle small with mild LVH and mildly reduced LV systolic�function estimated 45-50% by Vazquez's method.� On Levophed.� Abnormal septal�motion consistent with left bundle branch block without obvious regional wall�motion
abnormality.� Postcode EF visually estimated 55-60% on Levophed and�epinephrine drips with apical septal hypokinesis.�Right ventricle preintubation/code with overall preserved RV systolic function�however postarrest appeared dilated and
hypokinetic.�Right atrial dilatation.�Thickened mitral valve leaflets with systolic anterior motion of the mitral
valve chordae with mild late systolic mitral regurgitation.�Trileaflet aortic valve without stenosis or regurgitation.�Structurally normal tricuspid valve with mild tricuspid regurgitation.�Estimated pulmonary artery pressure post code estimated 38
mmHg assuming a�right atrial pressure of 5 mmHg.�No pericardial effusion.�Compared to prior study dated 12/22/2022, there is mild apical hypokinesis with septal abnormality related to left bundle branch block with a EF estimated 45%.�Right ventricle
was reported normal in size and function.� Mitral valve�structurally normal with trace mitral regurgitation and no ALVAREZ.� Aortic valve�sclerotic with mild AI.� Estimated pulmonary artery pressures previously 20-25�mmHg.
-----
Critical Care time 45 mins -- The patient is admitted for acute critical illness for the treatment of vital organ failure and/or prevention of further life-threatening conditions. Total care includes time spent in review of history, physical exam,
medications, hemodynamic/ventilator parameters, laboratory data, imaging and discussion with house staff, pharmacy, respiratory therapy, drilling contractor, and nursing.
Subjective Dataa
Subjective Data
Date of Service:
Date of Service: May 11, 2023
Chief Complaint: Treating Machine Operator Follow Up
Subjective:
On 3 pressors and clinically deteriorating
Family at bedside
Unresponsive
Objective Data
Data Reviewed
Vital Signs / I&O / Oxygen:
Vital Signs
Temp Pulse Resp BP Pulse Ox
98.0 F 98 37 102/85 54
05/11/23 04:00 05/11/23 05:45 05/11/23 05:45 05/10/23 01:05 05/10/23 17:45
Intake and Output
05/10/23 05/11/23 05/12/23
06:59 06:59 06:59
Intake Total 4486.5 / 4658.8 6462.1 / 6462.1
Output Total 670 / 670 41 / 41
Balance 3816.5 / 3988.8 6421.1 / 6421.1
SaO2 [A/C] 96
SaO2 54
Nasal Cannula flow liters per 6
minute
Physical Exam
General: Sweats (negative)
HEENT: Normocephalic and Anicteric
Cardiovascular: Irregular Rhythm, Peripheral Edema (negative) and Other (Normal rate)
Respiratory: Rhonchi, Accessory Resp Muscle Use (Negative), ET Tube and Other (Mechanical breath sounds heard bilaterally)
GI: Soft, Non Distended and Non Tender
Neurology: Unresponsive and Other (pupils 3 mm and minimally reactive)
Skin: Warm, Dry and Cyanosis (Negative)
Labs/Micro/Reports
Lab Data
05/11/23 04:29
Laboratory Results
05/10/23 05/10/23 05/10/23
10:33 13:07 17:11
APTT 65.4 H 106.6 H
pH 7.20 L 7.27 L
pCO2 44 H 45 H
pO2 116 H 111 H
HCO3 17.2 L 20.7 L
O2 Delivery Level
05/10/23 05/11/23
22:56 04:29
APTT 104.3 H 112.8 H
pH 7.21 L
pCO2 37 H
pO2 145 H
HCO3 14.8 L*
O2 Delivery Level 40%
Microbiology
05/08/23 16:46 Blood/Venous Blood Culture - Preliminary
No Growth in 48 hours- Final report to follow
05/08/23 16:47 Blood/Venous Blood Culture - Preliminary
No Growth in 48 hours- Final report to follow
05/09/23 13:26 Sputum Respiratory Culture - Preliminary
Usual Respiratory Gely
05/09/23 13:26 Sputum Gram Stain - Preliminary
05/09/23 13:26 Urine Urine Culture - Final
NO GROWTH
05/09/23 01:55 Nose MRSA Screen - Final
No Methicillin Resistant Staphylococcus aureus isolated.
05/08/23 20:12 Urine Legionella Urinary Antigen - Final
Negative for Legionella pneumophila Serogroup 1 antigen.
A negative result does not rule out the possiblity of
Legionella infection due to other serogroups or species of
Legionella. Clinical correlation is recommended.
05/08/23 20:12 Urine Streptococcus pneumoniae Antigen (M - Final
Negative for Streptococcus pneumoniae antigen.
A negative result does not exclude infection with
Streptococcus pneumoniae. Clinical correlation is
recommended.
05/08/23 15:08 Nasal Swab Influenza Types A & B (BLANCO) - Final
Negative for Influenza A & B, NAAT
Negative results must be combined with clinical observations
and patient history.
Nucleic Acid Amplification test (NAAT)performed on the
[employer] platform.
[2023-05-11 07:38] LABS: Mean Platelet Volume 11.7 fL (7.4-10.4); Platelet Count 93 10^3/uL (130-400)
--- NOTE | 2023-05-11 08:15 | W.PN.HOSP.TC ---
Today's Communication/Plan
-
see note for GOC discussion
continue current care
Assessment / Plan
Assessment / Plan
#PEA cardiac arrest 3/2
#Acute hypoxic respiratory failure
#Ventilator dependent respiratory failure
3/2 patient respiratory status declined requiring elective intubation
Patient had cardiac arrest post intubation and had PEA arrest - x2 mg epi/bicarb/ca amp
#Septic shock
#Worsening lactic acidosis
Possible source of ischemic colitis with translocation of bacteria versus less likely UTI/aspiration pneumonia
MRSA neg, vanc dc
Blood culture/urine culture/respiratory culture/influenza/Streptococcus pneumonia and Legionella urine antigen remains negative
Abdominal ultrasound rule out any cholelithiasis/cholecystitis
ID following, currently on renally adjusted dose of meropenem,
Patient remains on 3 vasopressors, maxed out dose.
#Ischemic colitis
#Constipation with stercoral colitis
Patient presented with abdominal pain and vomiting, no diarrhea
Lactic acid elevated 4-5 at admission and continues to worsen with shock state.
Seen by GI and general surgery, both teams have signed off
#New onset rapid atrial fibrillation
Heparin drip, amiodarone drip, management as per cardiology
#Shock liver
LFT > 7500 yesterday. repeat pending today
Liver/abd us ruled out any structural issues.
#Non-ST elevation myocardial infarction
#Type II myocardial infarction from demand ischemia
In the setting of ischemic colitis, septic shock
Cardiology evaluated and have NSTEMI.
Echocardiogram showing relatively preserved EF with regional wall motion in light of known LBBB
Currently being continued on heparin drip
#Acute kidney injury
From septic shock, nephrology consulted
Creatinine uptrending, repeat BMP pending today
Expect creatinine to worsen, may require CCRT
#Hypovolemic hyponatremia
Monitor
Aortic regurgitation
History of Lyme's disease
Meningioma
Rheumatoid arthritis
History of left breast lumpectomy
History of skin cancer
SRAVANTHI/BSO
DVT prophylaxis�heparin drip
Limited DNR - no CPR
Discussed with funeral car chauffeur and RN as well
3/4 discussed goals of care with family at bedside. Questions regarding likely sepsis etiology and clinical course discussed with family at bedside. I have discussed with patient family that despite appropriate medical treatment the chances of
patient condition deteriorating. At this point patient having multiorgan failure with refractory septic shock and patient appropriate for withdrawal of care. Family understands this and want to continue treatment with DNR. Family also understands
patient may pass away within 24-48hrs. emotional support provided.
Total Critical Care Time 45 minutes. I was immediately available to the patient and staff. I personally examined, reviewed labs, diagnostic images/reports, interpretations, treatment plans, discussed patient care with other providers and family
or caregivers (if patient is unable to make decisions), entered orders as appropriate and documented the medical record.
Anticipated Discharge: Within 24 hours
Subjective/Interval History
-
Date of Service: May 11, 2023
Patient seen and examined
Family at bedside
Currently on 3 vasopressors Levophed/vasopressin/phenylephrine maxed out
Intubated Fio2 40%, sedated
NG tube in place with drainage of dark brownish gastric content
Objective Data
-
Labs:
Laboratory Results
05/10/23 05/11/23 05/11/23
22:56 04:29 06:26
WBC 24.8 H
Hgb 11.7 L
Hct 34.5 L
Plt Count 93 L D
APTT 104.3 H 112.8 H
HCO3 14.8 L*
Sodium Cancelled Cancelled
Potassium Cancelled Cancelled
Chloride Cancelled Cancelled
Carbon Dioxide Cancelled Cancelled
BUN Cancelled Cancelled
Creatinine Cancelled Cancelled
Glucose Cancelled Cancelled
Calcium Cancelled Cancelled
Total Bilirubin Cancelled Cancelled
AST Cancelled Cancelled
ALT Cancelled Cancelled
Alkaline Phosphatase Cancelled Cancelled
05/11/23 05/11/23
06:40 11:30
WBC
Hgb
Hct
Plt Count
APTT Pending
HCO3
Sodium Pending
Potassium Pending
Chloride Pending
Carbon Dioxide Pending
BUN Pending
Creatinine Pending
Glucose Pending
Calcium Pending
Total Bilirubin Pending
AST Pending
ALT Pending
Alkaline Phosphatase Pending
Vital Signs:
Vital Signs
Temp Pulse Resp BP Pulse Ox
98.0 F 98 37 102/85 54
05/11/23 04:00 05/11/23 05:45 05/11/23 05:45 05/10/23 01:05 05/10/23 17:45
I&O
05/10/23 05/11/23 05/12/23
06:59 06:59 06:59
Intake Total 4486.5 / 4658.8 6462.1 / 6462.1
Output Total 670 / 670 41 / 41
Balance 3816.5 / 3988.8 6421.1 / 6421.1
Review of Systems
-
Unable to obtain full review of systems at this time due to: Patient Intubation
Physical Exam
-
General: Negative Respiratory Distress or Appears in Distress
HEENT: Oxygen (Intubated on vent)
Respiratory: Rhonchi
Cardiac: Irregular Rhythm and Tachycardic; Negative Murmur
GI: Soft, Nondistended and Other (NG tube in place); Negative Normal Bowel Sounds
Genito-urinary: [place]
Neuro: Sedated
--- NOTE | 2023-05-11 08:50 | PTCARENOTE ---
Pt received at 0700, unresponsive on the ventilator and maxed on 3 pressors, BP 60s/50s. Pt's called by nightshift and arrived early. spoke with family at bedside. Pt HR 60s with pauses to 150s. At 0836, went into VT then asystole at
0845.
--- NOTE | 2023-05-11 08:53 | W.PN.DEATH ---
Pronouncement of
-
Called to see patient to pronounce.
No spontaneous heart tones or respirations noted.
Patient not responsive to verbal stimuli.
Patient is pronounced .
Time of : 08:45
Date of : 05/11/23
Cause of : Septic shock, ischemic colitis, PEA arrest, shock liver, renal failure
Family Notified: Yes
--- NOTE | 2023-05-11 08:54 | W.DCSUMMARY ---
Discharge Summary
Discharge Data
Date of Admission: 05/08/23
Date of Discharge: 05/11/23
-
Pending Results: No
Hospital Course
This is a summary on Ms. Leatha Bello who on 05/11/2023 at 0845
List of hospital diagnosis:
Septic shock
Presumed ischemic colitis
Ventilatory dependent respiratory failure
Pulseless electrical activity cardiac arrest
Refractory lactic acidosis
Stercoral colitis
Suspected aspiration pneumonia
Urinary tract infection
New onset atrial fibrillation
Shock liver
Acute kidney injury
Type II myocardial infarction
Hypovolemic hyponatremia
Aortic regurgitation
History of Lyme's disease
History of meningioma
Rheumatoid arthritis
History of pulmonary nodules
Gastroesophageal reflux disease
History of left breast lumpectomy
History of skin cancer
History of total abdominal hysterectomy and bilateral salpingo-oophorectomy
Chronic left bundle branch block
Essential hypertension
Obesity
Hospital course:
Patient is a 77-year-old female with above-mentioned past medical history initially presented for new onset of nausea vomiting and shortness of breath. All of the symptoms were rapid onset within 24 hours before ER presentation. Patient was noted
to be hypotensive and in shock by EMS staff. Patient was provided IV fluid boluses and started on broad-spectrum antibiotics. Patient had a chest x-ray which was showing right lower lobe infiltrate this was suspected to be aspiration pneumonia
with patient's reported vomiting episodes. UA showing moderate pyuria and bacteria and there was suspicion of urinary tract infection as well. A CT abdomen pelvis was done which showed significant colitis involving from mid transverse colon to
sigmoid colon, patient had increased stool burden on imaging as well. Patient blood pressure did not improve with IV fluid boluses and was required to be started on vasopressors for treatment of septic shock . Patient was also started on stress
dose of steroids. GI and cardiology was involved in care and patient was admitted to ICU for further monitoring. Patient had underlying lactic acidosis and was tachypneic. Post admission following day patient pulmonary status was deteriorating
which prompted patient to be electively intubated with help of on-call anesthesiologist. Postintubation patient had cardiac arrest, patient noted to be in pulseless electrical activity. Patient required brief resuscitation and CPR provided with 2
mg epinephrine and 2 ampules of bicarb given. ROSC was achieved at this point. Patient family was updated by services delivery driver and patient was decided to be maintained on full medical treatment. An emergent echocardiogram showing reduced LV function of
45 to 50% with overall preserved RV function. Patient had some left ventricle septal motion defect which was felt to be related to known chronic left bundle branch block. ID was involved in care in light of worsening sepsis/septic shock. General
surgery evaluated patient as well at this point and recommended conservative/supportive management. NG tube was placed for low intermittent gastric decompression. Patient troponin very minimally elevated at admission although up trended post
resuscitation. Cardiology felt this to be related to non-ST segment myocardial infarction versus type II MN with shock and cardiac resuscitation measures. Patient was planned to have further ischemic evaluation post stabilization after shock
improvement. Patient ET tube accidentally got displaced at 1 point and required reintubation by PRODUCT TECHNICIAN.
Unfortunately despite maximal medical therapy patient continued to have worsening shock and increasing pressor requirements. Patient started to develop organ failure with shock liver and renal failure setting in. Nephrology was involved in care as
well and was considering need of CRRT if renal function continued to deteriorate. Patient also developed new atrial fibrillation and required to be started on amiodarone drip and heparin drip. An abdominal ultrasound was done which did not show
any cholecystitis. Patient continued to have worsening lactic acidosis despite all intensive medical therapy. Patient started to developing prolonged cardiac pauses which were responding to bicarb pushes. Goal of care discussion was held with
family members. Family members agreed for patient to be switched to no CPR with continual medical management. Patient clinical condition continued to deteriorate further and patient on 05/11/2023 at 0845. Patient family at bedside and
all questions answered with best clinical judgment. Possible source of patient's sepsis was stercoral colitis/ischemic colitis with translocation of gut bacteria. Patient likely developed aspiration pneumonia from vomiting and possible
contributory secondary reason for septic shock.
Discharge Plan
-
Patient Disposition:
Date/Time
Date/Time: 05/11/23 08:45
Discharge Date and Time
Discharge Date/Time: 05/11/23 08:45
[2023-05-11 20:10] LABS: Hepatitis B Surface Antigen Negative (Negative)
[2023-05-11 20:29] LABS: Hepatitis B Core Ab, Total Negative (Negative); Hepatitis B Surface Antibody Negative; Hepatitis C Antibody Negative (Negative)
[2023-05-11 20:35] LABS: Hepatitis A Antibody, Total Negative (Negative)
== END 2023-05-11 08:45 | disposition expired | DRG 871 ==
LOC: ICU 16:57
PROVIDERS: Family Medicine; Nurse Practitioner Primary Care; Physician Assistant Medical; ADMITTING PHYSICIAN Hospitalist; ATTENDING PHYSICIAN Hospitalist; CONSULT PHYSICIAN Internal Medicine; CONSULT PHYSICIAN Internal Medicine Cardiovascular Disease; CONSULT PHYSICIAN Internal Medicine Critical Care Medicine; CONSULT PHYSICIAN Internal Medicine Infectious Disease; CONSULT PHYSICIAN Specialist; CONSULT PHYSICIAN Surgery; EMERGENCY PHYSICIAN Emergency Medicine
PROC: 0BH17EZ Insertion of Endotracheal Airway into Trachea, Via Natural or Artificial Opening (ICD-10-PCS; 2023-05-09)
PROC: 5A1945Z Respiratory Ventilation, 24-96 Consecutive Hours (ICD-10-PCS; 2023-05-09)
DX: A41.9 Sepsis, unspecified organism (principal); I21.A1 Myocardial infarction type 2; J69.0 Pneumonitis due to inhalation of food and vomit; J96.01 Acute respiratory failure with hypoxia; R65.21 Severe sepsis with septic shock; K55.039 Acute (reversible) ischemia of large intestine, extent unspecified; K72.00 Acute and subacute hepatic failure without coma; E87.20 Acidosis, unspecified; N39.0 Urinary tract infection, site not specified; N17.9 Acute kidney failure, unspecified; E87.1 Hypo-osmolality and hyponatremia; J98.11 Atelectasis; A09 Infectious gastroenteritis and colitis, unspecified; I48.91 Unspecified atrial fibrillation; I08.3 Combined rheumatic disorders of mitral, aortic and tricuspid valves; M06.9 Rheumatoid arthritis, unspecified; K21.9 Gastro-esophageal reflux disease without esophagitis; I44.7 Left bundle-branch block, unspecified; I10 Essential (primary) hypertension; E66.9 Obesity, unspecified; Z68.35 Body mass index [BMI] 35.0-35.9, adult; Z86.011 Personal history of benign neoplasm of the brain
CPT/HCPCS: 36600; 51701; 51798; 71045; 74177; 76705; 80048; 80053; 80202; 81003; 81015; 82140; 82330; 82533; 82805; 82947; 82962; 83605; 83735; 83880; 83935; 84100; 84132; 84145; 84300; 84302; 84443; 84478; 84484; 85025; 85027; 85384; 85610; 85730; 86704; 86706; 86708; 86709; 86803; 87040; 87070; 87077; 87086; 87186; 87205; 87340; 87449; 87502; 87811; 87899; 93005; 93306; 94002; 94003; 96361; 96365; 96367; 96375; 99291; Q9967